=== PATIENT | female | born 1940 ===

== ENCOUNTER 2016-11-10 18:38 | Emergency (ER) | payer MEDICARE, MEDICAID ==
--- NOTE | 2016-11-10 19:30 | ED PDOC ---
HPI: CCC, URI, Sore Throat Time Seen by Provider: 11/10/16 18:54 Chief Complaint (Nursing): Chest Pain Chief Complaint (Provider): cough History Per: Patient History/Exam Limitations: no limitations Onset/Duration Of Symptoms: Days (1), Gradual Location Of Pain: Diffuse Myalgias, Headache Associated Symptoms: Fever, Chills, Cough, Myalgias, Nasal Congestion. denies: Sore Throat, Sputum, Sinus Drainage, Vomiting, Diarrhea Additional Complaint(s): At home she took her blood pressure and found it was high, although she has no h /o hypertension. Also reports some back pain. Past Medical History Reviewed: Historical Data, Nursing Documentation, Vital Signs Vital Signs: Last Vital Signs Temp 97.4 F L 11/10/16 22:45 Pulse 93 H 11/10/16 22:45 Resp 16 11/10/16 22:45 BP 101/62 11/10/16 22:45 Pulse Ox 96 11/14/16 14:12 - Medical History PMH: Cardia Arrhythmia Denies: Diabetes - Surgical History Surgical History: Cholecystectomy, Pacemaker - Family History Family History: States: Unknown Family Hx - Social History Current smoker - smoking cessation education provided: No - Home Medications Home Medications: Ambulatory Orders Medication Instructions Recorded Acetaminophen [Tylenol Extra 1,000 mg PO Q6 PRN #60 tablet 11/10/16 Strength] levoFLOXacin [Levaquin] 750 mg PO DAILY #5 tab 11/10/16 - Allergies Allergies/Adverse Reactions: Allergies Allergy/AdvReac Type Severity Reaction Status Date / Time azithromycin Allergy Verified 11/10/16 23:47 Review of Systems ROS Statement: Except As Marked, All Systems Reviewed And Found Negative (and as per HPI) Constitutional: Positive for: Fever, Chills ENT: Positive for: Nose Congestion. Negative for: Throat Pain, Throat Swelling Cardiovascular: Negative for: Edema, Light Headedness Respiratory: Positive for: Cough, Shortness of Breath. Negative for: Sputum Musculoskeletal: Positive for: Neck Pain, Back Pain Skin: Negative for: Rash, Lesions Physical Exam - Reviewed Nursing Documentation Reviewed: Yes Vital Signs Reviewed: Yes - Physical Exam Appears: Positive for: Non-toxic, No Acute Distress Head Exam: Positive for: ATRAUMATIC, NORMOCEPHALIC Skin: Positive for: Warm, Dry Eye Exam: Positive for: EOMI, PERRL ENT: Negative for: Pharyngeal Erythema, Tonsillar Exudate Neck: Positive for: Painless ROM, Supple Cardiovascular/Chest: Positive for: Chest Non Tender, Tachycardia. Negative for : Murmur Respiratory: Positive for: Rales (minimal base of RIGHT). Negative for: Accessory Muscle Use, Wheezing, Respiratory Distress Gastrointestinal/Abdominal: Positive for: Soft. Negative for: Tenderness, Mass Back: Positive for: Normal Inspection. Negative for: Muscle Spasm Extremity: Positive for: Normal ROM. Negative for: Pedal Edema Lymphatic: Negative for: Adenopathy Neurologic/Psych: Positive for: Alert. Negative for: Motor/Sensory Deficits - Laboratory Results Result Diagrams: 11/10/16 19:52 11/10/16 19:52 - ECG O2 Sat by Pulse Oximetry: 96 - Progress ED Course And Treament: Elevated ddimer, otherwise no clinically significant lab abnormalities. EXAM: CT Angiography Chest With Intravenous Contrast CLINICAL HISTORY: 76 years old, female; Pain; Other: Chest pain SOB tachycardia elevated ddimer; Prior surgery; Surgery date: 6+ months; Surgery type: Pacemaker mar 2015. Cholecystectomy TECHNIQUE: Axial computed tomographic angiography images of the chest with intravenous contrast using pulmonary embolism protocol. This CT exam was performed using one or more of the following dose reduction techniques: automated exposure control, adjustment of the mA and/or kV according to patient size, and/or use of iterative reconstruction technique. MIP reconstructed images were created and reviewed. Coronal and sagittal reformatted images were created and reviewed. CONTRAST: 98 mL of visipaque administered intravenously. COMPARISON: CR - CHEST TWO VIEWS (PA/LAT) 11/10/2016 7:43:55 PM FINDINGS: Limitations: Motion artifact - moderate. Pulmonary arteries: No definite pulmonary embolism. Aorta: Cgva-li-bgbncsys atherosclerotic disease. No aneurysm. Lungs: Mosaic pattern of lung parenchyma with scattered groundglass opacities. Minimal interlobular septal thickening. Small consolidation with air bronchograms within medial LEFT upper lobe. Few pulmonary nodules, up to 0.4 cm. Pleural space: No significant effusion. No pneumothorax. Heart: No cardiomegaly. No significant pericardial effusion. Mediastinum: Probable small hiatal hernia. Bones/joints: Degenerative changes of spine. No acute fracture. Soft tissues: Unremarkable. Lymph nodes: No pathologically enlarged lymph nodes. Liver: Probable fatty infiltration. Spleen: Multiple splenic calcifications. Tubes, lines and devices: LEFT pacemaker. IMPRESSION: 1. No definite CT evidence of pulmonary embolism. 2. Possible EVELYN pneumonia. Followup to resolution to exclude underlying pathology. 3. Mosaic pattern with scattered groundglass opacities, nonspecific. Clinical correlation is needed. 4. Pulmonary nodules. For low-risk patients, no follow-up is necessary. For high -risk patients (smoking history or other known risk factors) an optional CT at 12 months could be performed. 5. Incidental/non-acute findings are described above. Thank you for allowing us to participate in the care of your patient. Dictated and Authenticated by: Chi Ko MD 11/10/2016 10:09 PM Eastern Time ([place] & [place]) DW pt findings. Pt comfortable and eager to go home. Will give one dose of IV antibiotics and dc w oral course. Emphasized importance of PMD follow up. 12am Pt with small localized redness to LEFT antecubital area at site of IV azithromycin infusion. Some firmness and swelling to LEFT vein. Otherwise no diffuse rash or shortness of breath or itching. IV Azithro discontinued for possible reaction (although could also be related to IV)and IV benadryl given. Pt to be given course of Levaquin instead. Re-evaluation Time: 22:00 Condition: Improved (Pt is comfortable and eager to go home.) Disposition - Clinical Impression Clinical Impression: Pneumonia Counseled Patient/Family Regarding: Studies Performed, Diagnosis, Need For Followup, Rx Given - Disposition Referrals: Prabhu Jackson [Staff Provider] - 11/12/16 ([facility]) Disposition: Routine/Home Disposition Time: 22:00 Condition: IMPROVED Prescriptions: Acetaminophen [Tylenol Extra Strength] 1,000 mg PO Q6 PRN #60 tablet PRN Reason: Fever >100.4 F levoFLOXacin [Levaquin] 750 mg PO DAILY #5 tab Instructions: Community Acquired Pneumonia (ED) Print Language: DIVEHI
[2016-11-10 19:53] LABS: VENOUS BLOOD GAS BASE EXCESS 4.3 mmol/L (0.0-2.0); VENOUS BLOOD GAS PCO2 47 mmHg (40-60); VENOUS BLOOD GAS PO2 29 mm/Hg (30-55); VENOUS BLOOD PH 7.41 (7.32-7.43)
[2016-11-10 19:57] LABS: BASO # 0.1 K/uL (0.0-0.2); BASO % 1.1 % (0.0-2.0); EOS # 0.2 K/uL (0.0-0.7); EOS % 2.5 % (0.0-4.0); HEMOGLOBIN 13.7 g/dL (12.0-16.0); LYMPH # 2.2 K/uL (1.0-4.3); MEAN CELL VOLUME 88.3 fl (81.0-99.0); MEAN CORPUSCULAR HGB CONC 32.9 g/dL (33.0-37.0); MEAN PLATELET VOLUME 10.8 fl (7.2-11.7); MONO % 10.2 % (0.0-10.0); NEUT # 6.5 K/uL (1.8-7.0); NEUT % 64.2 % (50.0-75.0); NRBC % 0.1 % (0.0-0.0); RBC 4.72 Mil/uL (3.80-5.20); RED CELL DISTRIBUTION WIDTH 14.3 % (11.5-14.5); WHITE BLOOD COUNT 10.1 K/uL (4.8-10.8)
[2016-11-10 21:01] LABS: ALB/GLOB RATIO 1.4 (1.0-2.1); ALBUMIN 4.4 g/dL (3.5-5.0); ALT/SGPT 36 U/L (9-52); AST/SGOT 30 U/L (14-36); BLOOD UREA NITROGEN 9 mg/dl (7-17); CALCIUM 9.2 mg/dL (8.4-10.2); GFR AFRICAN-AMERICAN > 60; GFR NON-AFRICAN AMERICAN > 60; MAGNESIUM 1.6 MG/DL (1.6-2.3)
[2016-11-10 21:08] LABS: B-TYPE NATRIURETIC PEPTIDE 282 pg/ml (0-900)
[2016-11-10] MEDS ORDERED: Iodixanol 320 MG/ML 100 ML BOTTLE IV ONE (21:34)
[2016-11-10] MEDS ORDERED: Sodium Chloride 0.9% 50 ML IV ONE (21:35)
--- NOTE | 2016-11-10 22:09 | CT ---
EXAM: CT Angiography Chest With Intravenous Contrast CLINICAL HISTORY: 76 years old, female; Pain; Other: Chest pain SOB tachycardia elevated ddimer; Prior surgery; Surgery date: 6+ months; Surgery type: Pacemaker mar 2015. Cholecystectomy TECHNIQUE: Axial computed tomographic angiography images of the chest with intravenous contrast using pulmonary embolism protocol. This CT exam was performed using one or more of the following dose reduction techniques: automated exposure control, adjustment of the mA and/or kV according to patient size, and/or use of iterative reconstruction technique. MIP reconstructed images were created and reviewed. Coronal and sagittal reformatted images were created and reviewed. CONTRAST: 98 mL of visipaque administered intravenously. COMPARISON: CR - CHEST TWO VIEWS (PA/LAT) 11/10/2016 7:43:55 PM FINDINGS: Limitations: Motion artifact - moderate. Pulmonary arteries: No definite pulmonary embolism. Aorta: Hdic-nb-cetalcww atherosclerotic disease. No aneurysm. Lungs: Mosaic pattern of lung parenchyma with scattered groundglass opacities. Minimal interlobular septal thickening. Small consolidation with air bronchograms within medial LEFT upper lobe. Few pulmonary nodules, up to 0.4 cm. Pleural space: No significant effusion. No pneumothorax. Heart: No cardiomegaly. No significant pericardial effusion. Mediastinum: Probable small hiatal hernia. Bones/joints: Degenerative changes of spine. No acute fracture. Soft tissues: Unremarkable. Lymph nodes: No pathologically enlarged lymph nodes. Liver: Probable fatty infiltration. Spleen: Multiple splenic calcifications. Tubes, lines and devices: LEFT pacemaker. IMPRESSION: 1. No definite CT evidence of pulmonary embolism. 2. Possible EVELYN pneumonia. Followup to resolution to exclude underlying pathology. 3. Mosaic pattern with scattered groundglass opacities, nonspecific. Clinical correlation is needed. 4. Pulmonary nodules. For low-risk patients, no follow-up is necessary. For high-risk patients (smoking history or other known risk factors) an optional CT at 12 months could be performed. 5. Incidental/non-acute findings are described above.
[2016-11-10 22:45] VITALS: BP 101/62; PULSE 93; RESP 16; TEMP 97.4
[2016-11-10] MEDS ORDERED: Azithromycin 500 MG in Sodium Chloride 0.9% 250 ML IVPB STA (22:51)
[2016-11-10 22:54] VITALS: O2SAT 96
[2016-11-10] MEDS ORDERED: DiphenhydrAMINE 50 mg/ml Inj IVP STA (23:40)
--- NOTE | 2016-11-11 08:26 | RAD ---
HISTORY: sob COMPARISON: No prior. TECHNIQUE: Chest PA and lateral FINDINGS: LUNGS: No active pulmonary disease. PLEURA: No significant pleural effusion identified. No pneumothorax apparent. CARDIOVASCULAR: Normal. Pacemaker and leads in place. Atherosclerotic aorta. OSSEOUS STRUCTURES: No significant abnormalities. VISUALIZED UPPER ABDOMEN: Normal. OTHER FINDINGS: None. IMPRESSION: No active disease.
--- NOTE | 2016-11-11 11:29 | CARD ---
APPROVED REPORT EKG Measurement Heart [id number] <Conclusion> Sinus tachycardia Right bundle branch block Abnormal ECG
== END 2016-11-11 00:20 | disposition home or self-care (01) ==
LOC: H.ER 18:38
DX: J18.9 Pneumonia, unspecified organism (principal); I45.10 Unspecified right bundle-branch block; Z90.49 Acquired absence of other specified parts of digestive tract; Z95.0 Presence of cardiac pacemaker
CPT/HCPCS: 71020; 71275; 80053; 82803; 83735; 83880; 84100; 84484; 85025; 85378; 87040; 93005; 96374; 96375; 99284; J0456; J1200; J7050; Q9967

== ENCOUNTER 2017-03-31 03:39 | Emergency (ER) | payer MEDICARE, MEDICAID ==
[2017-03-31 03:56] VITALS: BMI 31.2
[2017-03-31] MEDS ORDERED: Albuterol-Ipratrop 3 mg / 0.5 (3 ml) UD INH STA ×2 (03:56→05:00)
[2017-03-31 04:00] VITALS: TEMP 97.8
--- NOTE | 2017-03-31 04:03 | ED PDOC ---
HPI: CCC, URI, Sore Throat Time Seen by Provider: 03/31/17 03:46 Chief Complaint (Nursing): Cough, Cold, Congestion Chief Complaint (Provider): Cough, Cold, Congestion History Per: Patient History/Exam Limitations: no limitations Have you had recent travel within the past 21 days to any of the following countries: [place], [place], [place] or [place]?: No Onset/Duration Of Symptoms: Days (x 3) Current Symptoms Are (Timing): Still Present Sick Contacts (Context): None Additional Complaint(s): 77 year old women presents to the ED with a cough productive of green sputum and associated shortness of breath, chest pain and a fever while at home. Patient has previously had bronchitis and was concerned she had it again. She denies any sick contact or recent travel. PMD: Dr. Reji Jackson MD Past Medical History Reviewed: Historical Data, Nursing Documentation, Vital Signs Vital Signs: Last Vital Signs Temp 97.8 F 03/31/17 03:57 Pulse 75 03/31/17 03:57 Resp 16 03/31/17 03:57 BP 150/68 03/31/17 03:57 Pulse Ox 95 03/31/17 05:32 - Medical History PMH: Cardia Arrhythmia, HTN Denies: Diabetes Other PMH: Bladder incontinence - Surgical History Surgical History: Cholecystectomy, Pacemaker - Family History Family History: States: Unknown Family Hx - Home Medications Home Medications: Ambulatory Orders Medication Instructions Recorded Acetaminophen [Tylenol Extra 1,000 mg PO Q6 PRN #60 tablet 11/10/16 Strength] levoFLOXacin [Levaquin] 750 mg PO DAILY #5 tab 11/10/16 Albuterol HFA [Ventolin HFA 90 2 puff IH [id number] #1 puff 03/31/17 mcg/actuation (8 g)] predniSONE [predniSONE Tab] 20 mg PO DAILY #3 tab 03/31/17 - Allergies Allergies/Adverse Reactions: Allergies Allergy/AdvReac Type Severity Reaction Status Date / Time azithromycin Allergy Verified 11/10/16 23:47 Review of Systems ROS Statement: Except As Marked, All Systems Reviewed And Found Negative Constitutional: Positive for: Fever (no longer present) Cardiovascular: Positive for: Chest Pain Respiratory: Positive for: Cough, Shortness of Breath, Sputum (green) Physical Exam - Reviewed Nursing Documentation Reviewed: Yes Vital Signs Reviewed: Yes - Physical Exam Appears: Positive for: Non-toxic, No Acute Distress Head Exam: Positive for: ATRAUMATIC, NORMAL INSPECTION, NORMOCEPHALIC Skin: Positive for: Normal Color, Warm, Dry Neck: Positive for: Normal, Painless ROM, Supple Respiratory: Positive for: Crackles (bilateral at the base of the lungs), Wheezing (expiratory) Neurologic/Psych: Positive for: Alert, Oriented. Negative for: Motor/Sensory Deficits - Laboratory Results Result Diagrams: 03/31/17 04:10 03/31/17 04:10 - ECG O2 Sat by Pulse Oximetry: 95 (RA) Pulse Ox Interpretation: Normal Medical Decision Making Medical Decision Making: Time: 03:57 Impression: pneumonia versus viral illness versus CHF versus ACS ' Initial Plan: --VBG shock panel --EKG --BNP --BMP --Troponin I --CBC with differentials --PTT --Prothrombin Time --Chest x-ray two views --Duoneb 3 ml INH --Peak Flow Pre/ Post treatment --Influenza A B 530AM Pt. reports resolution of symptoms. Lungs now clear on exam. Likely bronchospasm caused by viral illness. Will prescribe steroid/albuterol and have patient f/u w/ Dr. Jackson in 2 days. Return precautions discussed. Scribe Attestation: Documented by Gladys Ruggiero, acting as a scribe for Travis Boss MD Provider Scribe Attestation: All medical record entries made by the Scribe were at my direction and personally dictated by me. I have reviewed the chart and agree that the record accurately reflects my personal performance of the history, physical exam, medical decision making, and the department course for this patient. I have also personally directed, reviewed, and agree with the discharge instructions and disposition. Disposition - Clinical Impression Clinical Impression: Cough, Bronchospasm - Patient ED Disposition Is Patient to be Admitted: No - Disposition Referrals: Prabhu Jackson [Staff Provider] - Disposition: Routine/Home Disposition Time: 05:43 Condition: IMPROVED Prescriptions: Albuterol HFA [Ventolin HFA 90 mcg/actuation (8 g)] 2 puff IH [id number] #1 puff predniSONE [predniSONE Tab] 20 mg PO DAILY #3 tab Instructions: Bronchospasm (DC) Forms: [email or web address] (Upper Sorbian) Print Language: KIS[place]HILI
[2017-03-31] MEDS ORDERED: Albuterol-Ipratrop 3 mg / 0.5 (3 ml) UD ONE ×2 (04:09→05:15)
[2017-03-31 04:13] LABS: BASO # 0.1 K/uL (0.0-0.2); BASO % 0.9 % (0.0-2.0); EOS # 0.4 K/uL (0.0-0.7); EOS % 5.4 % (0.0-4.0); HEMATOCRIT 41.1 % (34.0-47.0); LYMPH # 3.2 K/uL (1.0-4.3); LYMPH % 46.5 % (20.0-40.0); MEAN CELL VOLUME 86.7 fl (81.0-99.0); MEAN CORPUSCULAR HGB CONC 33.4 g/dL (33.0-37.0); MEAN PLATELET VOLUME 9.7 fl (7.2-11.7); MONO # 0.7 K/uL (0.0-0.8); MONO % 10.6 % (0.0-10.0); NEUT # 2.5 K/uL (1.8-7.0); NEUT % 36.6 % (50.0-75.0); NRBC % 0.2 % (0.0-0.0); RED CELL DISTRIBUTION WIDTH 15.1 % (11.5-14.5); WHITE BLOOD COUNT 6.8 K/uL (4.8-10.8)
[2017-03-31 04:14] LABS: VENOUS BLOOD GAS BASE EXCESS 3.3 mmol/L (0.0-2.0); VENOUS BLOOD GAS MODE ROOM AIR; VENOUS BLOOD GAS PCO2 48 mmHg (40-60); VENOUS BLOOD PH 7.39 (7.32-7.43)
[2017-03-31 04:21] LABS: BLOOD UREA NITROGEN 17 mg/dl (7-17); CARBON DIOXIDE 26 mmol/L (22-30); CHLORIDE 104 mmol/L (98-107); GFR AFRICAN-AMERICAN > 60; GLUCOSE,RANDOM 104 mg/dL (65-105); POTASSIUM 4.2 MMOL/L (3.6-5.0); SODIUM 143 mmol/l (132-148)
[2017-03-31 04:40] LABS: PARTIAL THROMBOPLASTIN TIME 29.9 Seconds (25.6-37.1)
[2017-03-31 06:18] VITALS: BP 118/61; PULSE 98; RESP 18; O2SAT 97
--- NOTE | 2017-03-31 11:08 | RAD ---
HISTORY: cp, sob COMPARISON: 11/10/2016 TECHNIQUE: Chest PA and lateral FINDINGS: LUNGS: No active pulmonary disease. PLEURA: No significant pleural effusion identified. No pneumothorax apparent. CARDIOVASCULAR: Cardiomegaly. Atherosclerotic aorta. OSSEOUS STRUCTURES: No significant abnormalities. VISUALIZED UPPER ABDOMEN: Normal. OTHER FINDINGS: None. IMPRESSION: No active disease.
--- NOTE | 2017-03-31 11:51 | CARD ---
APPROVED REPORT EKG Measurement Heart [id number] <Conclusion> Atrial-sensed ventricular-paced rhythm with prolonged AV conduction Abnormal ECG
== END 2017-03-31 06:18 | disposition home or self-care (01) ==
LOC: H.ER 03:39
DX: J98.01 Acute bronchospasm (principal); I10 Essential (primary) hypertension; Z95.0 Presence of cardiac pacemaker

== ENCOUNTER 2017-10-17 17:54 | Observation (INO) | payer MEDICARE, MEDICAID ==
[2017-10-17 17:54] VITALS: BMI 31.2
[2017-10-17] MEDS ORDERED: Iohexol 240 (50 ml) PO ONE (18:39)
[2017-10-17 18:49] LABS: BASO # 0.1 K/uL (0.0-0.2); EOS # 0.3 K/uL (0.0-0.7); EOS % 3.1 % (0.0-4.0); HEMOGLOBIN 13.6 g/dL (12.0-16.0); LYMPH # 1.6 K/uL (1.0-4.3); LYMPH % 16.2 % (20.0-40.0); MEAN CELL VOLUME 88.4 fl (81.0-99.0); MEAN CORPUSCULAR HEMOGLOBIN 29.1 pg (27.0-31.0); MEAN PLATELET VOLUME 10.2 fl (7.2-11.7); MONO # 0.8 K/uL (0.0-0.8); NEUT # 7.1 K/uL (1.8-7.0); NEUT % 71.7 % (50.0-75.0); NRBC % 0.1 % (0.0-0.0); RBC 4.67 Mil/uL (3.80-5.20); RED CELL DISTRIBUTION WIDTH 14.3 % (11.5-14.5); WHITE BLOOD COUNT 9.9 K/uL (4.8-10.8)
[2017-10-17 18:51] LABS: CALCIUM 9.1 mg/dL (8.4-10.2); GFR AFRICAN-AMERICAN > 60; GFR NON-AFRICAN AMERICAN > 60; LIPASE 69 U/L (23-300)
--- NOTE | 2017-10-17 18:55 | ED PDOC ---
HPI: Abdomen Time Seen by Provider: 10/17/17 18:18 Chief Complaint (Nursing): Abdominal Pain Chief Complaint (Provider): abdominal pain History Per: Patient, Air Technician History/Exam Limitations: no limitations Onset/Duration Of Symptoms: Days (3 weeks) Current Symptoms Are (Timing): Still Present Location Of Pain/Discomfort: LLQ Quality Of Discomfort: Sharp Associated Symptoms: Nausea, Loss Of Appetite, Back Pain. denies: Vomiting, Diarrhea Exacerbating Factors: None Alleviating Factors: None Additional Complaint(s): 77yo female c/o left lower abd pain intermittent x several weeks but worse today , associated with vomiting today and tactile fever earlier. Denies urinary symptoms although notes incontinence. Denies syncope, back pain or BRBPR or hematuria. Past Medical History Reviewed: Historical Data, Nursing Documentation, Vital Signs Vital Signs: Last Vital Signs Temp 97.4 F L 10/18/17 12:16 Pulse 77 10/18/17 12:16 Resp 18 10/18/17 12:16 BP 132/75 10/18/17 12:16 Pulse Ox 97 10/18/17 12:16 - Medical History PMH: Cardia Arrhythmia, HTN Denies: Diabetes - Surgical History Surgical History: Cholecystectomy, Pacemaker - Family History Family History: States: Unknown Family Hx - Living Arrangements Living Arrangements: With Family (daughter) - Social History Current smoker - smoking cessation education provided: No - Home Medications Home Medications: Ambulatory Orders Medication Instructions Recorded Albuterol HFA [Ventolin HFA 90 2 puff IH [id number] #1 puff 03/31/17 mcg/actuation (8 g)] Ciprofloxacin [Cipro] 500 mg PO Q12 #12 tab 10/18/17 amLODIPine [Norvasc] 5 mg PO DAILY #30 tab 10/18/17 - Allergies Allergies/Adverse Reactions: Allergies Allergy/AdvReac Type Severity Reaction Status Date / Time azithromycin Allergy Verified 11/10/16 23:47 Review of Systems Constitutional: Negative for: Fever Cardiovascular: Negative for: Chest Pain Gastrointestinal: Positive for: Nausea, Abdominal Pain. Negative for: Diarrhea Genitourinary Female: Negative for: Dysuria Musculoskeletal: Negative for: Neck Pain Skin: Negative for: Rash, Lesions Neurological: Negative for: Weakness, Numbness Physical Exam - Reviewed Nursing Documentation Reviewed: Yes Vital Signs Reviewed: Yes - Physical Exam Appears: Positive for: Well, Non-toxic, No Acute Distress Head Exam: Positive for: ATRAUMATIC, NORMAL INSPECTION, NORMOCEPHALIC Skin: Positive for: Normal Color, Warm, DRY Eye Exam: Positive for: EOMI, Normal appearance, PERRL ENT: Positive for: Normal ENT Inspection Neck: Positive for: Normal, Painless ROM Cardiovascular/Chest: Positive for: Regular Rate, Rhythm Respiratory: Positive for: CNT, Normal Breath Sounds Gastrointestinal/Abdominal: Positive for: Soft, Tenderness (LLQ pain). Negative for: Guarding, Rebound Back: Positive for: Normal Inspection Extremity: Positive for: Normal ROM Neurologic/Psych: Positive for: Alert, Oriented. Negative for: Motor/Sensory Deficits - Laboratory Results Result Diagrams: 10/18/17 11:14 10/18/17 11:14 - ECG O2 Sat by Pulse Oximetry: 97 Medical Decision Making Medical Decision Making: workup for abd pain initiated, labs, CT abd pelv and pain medicine ordered labs reviewed, reveal mild dehydration UDip +small leuks CT obtained r/o diverticulitis vs other COMPARISON: There are no prior studies for comparison. FINDINGS: Artifacts: Motion artifact degrades image quality. Lower thorax: There is prominence of interstitial markings at the lung bases. There are patchy asymmetric groundglass opacities. Heart size is normal. There is streak artifact from a pacer lead. There is a small hiatal hernia. ABDOMEN: Liver: unremarkable Gallbladder and bile ducts: Gallbladder is surgically absent. There is mild intra-extra hepatic biliary ductal prominence. Pancreas: Pancreas is mildly atrophic. Spleen: There are multiple granulomas in the spleen. Adrenals: unremarkable Kidneys and ureters: unremarkable Stomach and bowel: Stomach is partially distended. Rotation is normal. There is contrast throughout the small bowel. There is mild small bowel wall thickening. Ileocecal region is unremarkable.Appendix and terminal ileum are unremarkable. There is moderately large amount of stool in the cecum. There are air-fluid levels in the colon. PELVIS: Appendix: See stomach and bowel Bladder: unremarkable Reproductive: Uterus is mildly prominent for patient's age. There are coarse uterine calcifications. There are no adnexal masses. ABDOMEN and PELVIS: Intraperitoneal space: There is no free air. There is no free fluid. Bones/joints: Bony structures are osteopenic. There are degenerative changes. Soft tissues: unremarkable Vasculature: Aorta is mildly tortuous. There are vascular calcifications. Lymph nodes: There shotty mesenteric nodes. IMPRESSION: Mild ductal dilatation status post cholecystectomy; prior granulomatous disease, no acute solid visceral abnormality; possible enteritis Additional nonemergent findings as described above. Thank you for allowing us to participate in the care of your patient. Dictated and Authenticated by: Shirin Rod MD 10/17/2017 10:13 PM Eastern Time ([place] & [place]) Re-eval 1115p remains in discomfort, while speaking to her via special effects designer Gail ([email or web address] she had acute episode became tearful. Unclear etiology. ?intestinal angina. UDip mild leuks, cipro and urine culture ordered Place Obs to hospitalist for PMD Renetta for poss GI eval in am Disposition - Clinical Impression Clinical Impression: Abdominal pain - Patient ED Disposition Is Patient to be Admitted: Yes - Disposition Disposition Time: 20:30 Condition: GOOD - Pt Status Changed To: Hospital Disposition Of: Observation - POA Present On Arrival: None
[2017-10-17 18:59] LABS: ALB/GLOB RATIO 1.3 (1.0-2.1); ALBUMIN 4.5 g/dL (3.5-5.0); ALT/SGPT 8 U/L (9-52); AST/SGOT 43 U/L (14-36); BLOOD UREA NITROGEN 18 mg/dl (7-17)
[2017-10-17] MEDS ORDERED: Sodium Chloride 0.9% 50 ML IV ONE (20:24)
[2017-10-17] MEDS ORDERED: Iohexol 300 100 ML IJ ONE (20:24)
--- NOTE | 2017-10-17 22:14 | CT ---
EXAM: CT Abdomen and Pelvis With Intravenous Contrast EXAM DATE/TIME: 10/17/2017 6:39 PM CLINICAL HISTORY: 77 years old, female; Pain; Abdominal pain; Localized; Left lower quadrant (llq); Prior surgery; Surgery date: 6+ months; Surgery type: Gb removed; Additional info: Llq pain x1 month TECHNIQUE: Axial computed tomography images of the abdomen and pelvis with intravenous contrast. All CT scans at this facility use at least one of these dose optimization techniques: automated exposure control; mA and/or kV adjustment per patient size (includes targeted exams where dose is matched to clinical indication); or iterative reconstruction. Coronal and sagittal reformatted images were created and reviewed. COMPARISON: There are no prior studies for comparison. FINDINGS: Artifacts: Motion artifact degrades image quality. Lower thorax: There is prominence of interstitial markings at the lung bases. There are patchy asymmetric groundglass opacities. Heart size is normal. There is streak artifact from a pacer lead. There is a small hiatal hernia. ABDOMEN: Liver: unremarkable Gallbladder and bile ducts: Gallbladder is surgically absent. There is mild intra-extra hepatic biliary ductal prominence. Pancreas: Pancreas is mildly atrophic. Spleen: There are multiple granulomas in the spleen. Adrenals: unremarkable Kidneys and ureters: unremarkable Stomach and bowel: Stomach is partially distended. Rotation is normal. There is contrast throughout the small bowel. There is mild small bowel wall thickening. Ileocecal region is unremarkable.Appendix and terminal ileum are unremarkable. There is moderately large amount of stool in the cecum. There are air-fluid levels in the colon. PELVIS: Appendix: See stomach and bowel Bladder: unremarkable Reproductive: Uterus is mildly prominent for patient's age. There are coarse uterine calcifications. There are no adnexal masses. ABDOMEN and PELVIS: Intraperitoneal space: There is no free air. There is no free fluid. Bones/joints: Bony structures are osteopenic. There are degenerative changes. Soft tissues: unremarkable Vasculature: Aorta is mildly tortuous. There are vascular calcifications. Lymph nodes: There shotty mesenteric nodes. IMPRESSION: Mild ductal dilatation status post cholecystectomy; prior granulomatous disease, no acute solid visceral abnormality; possible enteritis Additional nonemergent findings as described above.
[2017-10-17] MEDS ORDERED: Sodium Chloride 0.9% 500 ML IV STA (22:40)
[2017-10-17] MEDS ORDERED: Ciprofloxacin 400mg/200ml D5W 400 MG/200 ML BAG IVPB STA (23:14)
[2017-10-17] MEDS ORDERED: Ciprofloxacin 400mg/200ml D5W 400 MG/200 ML BAG IVPB ONE (23:19)
--- NOTE | 2017-10-17 23:36 | CP.PCM.HP ---
History of Present Illness - History of Present Illness History of Present Illness: PMD: Prabhu Jackson MD Chief complaint: Abdominal pain The Patient was seen and examined in the ED HPI: This is a 77 years old speaking female with hx of HTN. and cardiac arrhythm. She comes referring 4 weeks of LLQ abdominal pain which is intermittent but severe, occurring at rest or on exertion, radiating towards the left groin. No fever, chills, vomits, dysuria, diarrhea, nor hematuria. PMH: Cardiac Arrhythmia; HTN; Hearing impairment PSH: Cholecystectomy, Pacemaker SH: Never smoked: no alcohol; No illegal drug use; Live with family FH: State: No family hx Allergies: NKDA Medication: Reviewed Present on Admission - Present on Admission Any Indicators Present on Admission: No History of DVT/PE: No History of Uncontrolled Diabetes: No Urinary Catheter: No Decubitus Ulcer Present: No Review of Systems - Constitutional Constitutional: absent: Anorexia, Chills, Fever, Headache, Lethargy - EENT Eyes: Requires Corrective Lenses. absent: Blurred Vision, Diplopia, Floaters, Sees Flashes Ears: Decreased Hearing. absent: Tinnitus Nose/Mouth/Throat: absent: Epistaxis, Nasal Congestion, Sinus Pain, Sinus Pressure - Cardiovascular Cardiovascular: absent: Chest Pain, Dyspnea, Edema - Respiratory Respiratory: absent: Cough, Dyspnea, Wheezing, Stridor - Gastrointestinal Gastrointestinal: Abdominal Pain, Constipation, Nausea. absent: Diarrhea, Vomiting - Genitourinary Genitourinary: Urinary Incontinence. absent: Dysuria, Flank Pain - Musculoskeletal Musculoskeletal: absent: Abnormal Gait, Arthralgias, Joint Swelling, Myalgias - Integumentary Integumentary: absent: Pruritus, Rash, Skin Ulcer, Sores, Striae, Swelling - Neurological Neurological: absent: Confusion, Dizziness, Focal Weakness, Weakness - Psychiatric Psychiatric: absent: Anxiety, Depression, Panic Attacks - Endocrine Endocrine: absent: Palpitations, Polydipsia, Polyphagia, Polyuria - Hematologic/Lymphatic Hematologic: absent: Easy Bleeding, Easy Bruising Past Patient History - Infectious Disease Hx of Infectious Diseases: None - Past Medical History & Family History Past Medical History?: Yes - Past Social History Smoking Status: Never Smoked Chewing Tobacco Use: No Cigar Use: No Alcohol: None Drugs: Denies Home Situation {Lives}: With Family - CARDIAC Hx Cardia Arrhythmia: Yes Hx Hypertension: Yes Hx Pacemaker: Yes - PULMONARY Hx Respiratory Disorders: No - NEUROLOGICAL Hx Neurological Disorder: No - HEENT Hx Deafness: Yes (hearing aide) - RENAL Hx Chronic Kidney Disease: No - ENDOCRINE/METABOLIC Hx Endocrine Disorders: No - HEMATOLOGICAL/ONCOLOGICAL Hx Blood Disorders: No - INTEGUMENTARY Hx Dermatological Problems: No - MUSCULOSKELETAL/RHEUMATOLOGICAL Hx Musculoskeletal Disorders: No - GASTROINTESTINAL Hx Gastrointestinal Disorders: No - GENITOURINARY/GYNECOLOGICAL Hx Genitourinary Disorders: No - PSYCHIATRIC Hx Psychophysiologic Disorder: No Hx Substance Use: No - SURGICAL HISTORY Hx Cholecystectomy: Yes - ANESTHESIA Hx Anesthesia: Yes Hx Anesthesia Reactions: No Meds Allergies/Adverse Reactions: Allergies Allergy/AdvReac Type Severity Reaction Status Date / Time azithromycin Allergy Verified 11/10/16 23:47 Physical Exam - Constitutional Appears: No Acute Distress - Head Exam Head Exam: ATRAUMATIC, NORMAL INSPECTION, NORMOCEPHALIC - Eye Exam Eye Exam: EOMI, Normal appearance Pupil Exam: NORMAL ACCOMODATION, PERRL - ENT Exam ENT Exam: Mucous Membranes Moist, Normal Exam, Normal External Ear Exam - Neck Exam Neck exam: Positive for: Full Rom, Normal Inspection. Negative for: Lymphadenopathy, Tenderness - Respiratory Exam Respiratory Exam: Clear to Auscultation Bilateral. absent: Rales, Wheezes, NORMAL BREATHING PATTERN - Cardiovascular Exam Cardiovascular Exam: REGULAR RHYTHM, RRR, +S1, +S2. absent: Gallop - GI/Abdominal Exam Additional comments: Full, soft, +ve bowel sounds, no guarding, non tender at this examination - Rectal Exam Rectal Exam: Deferred - Extremities Exam Extremities exam: Positive for: full ROM, normal inspection. Negative for: calf tenderness, joint swelling, pedal edema - Back Exam Back exam: NORMAL INSPECTION. absent: CVA tenderness (L), CVA tenderness (R) - Neurological Exam Neurological exam: Alert, CN II-XII Intact, Oriented x3, Reflexes Normal - Psychiatric Exam Psychiatric exam: Normal Affect, Normal Mood - Skin Skin Exam: Dry, Intact, Normal Color Results - Vital Signs Recent Vital Signs: Last Vital Signs Temp 98.6 F 10/17/17 18:05 Pulse 85 10/17/17 18:05 Resp 16 10/17/17 18:05 BP 160/63 H 10/17/17 18:05 Pulse Ox 97 10/17/17 23:22 - Labs Result Diagrams: 10/17/17 18:30 10/17/17 18:30 Labs: Laboratory Results - last 24 hr 10/17/17 10/17/17 18:30 18:30 WBC 9.9 RBC 4.67 Hgb 13.6 Hct 41.2 MCV 88.4 MCH 29.1 MCHC 33.0 RDW 14.3 Plt Count 262 MPV 10.2 Neut % (Auto) 71.7 Lymph % (Auto) 16.2 L [place] % (Auto) 8.0 Eos % (Auto) 3.1 Baso % (Auto) 1.0 Neut # (Auto) 7.1 H Lymph # (Auto) 1.6 [place] # (Auto) 0.8 Eos # (Auto) 0.3 Baso # (Auto) 0.1 Sodium 141 Potassium 4.8 Chloride 105 Carbon Dioxide 22 Anion Gap 19 BUN 18 H Creatinine 0.5 L Est GFR ( Amer) > 60 Est GFR (Non-Af Amer) > 60 Random Glucose 110 H Calcium 9.1 Total Bilirubin 1.4 H AST 43 H ALT 8 L D Alkaline Phosphatase 105 Total Protein 7.9 Albumin 4.5 Globulin 3.4 Albumin/Globulin Ratio 1.3 Lipase 69 - Imaging and Cardiology CT scan - abdomen Status: Report reviewed by me Additional comment: EXAM: CT Abdomen and Pelvis With Intravenous Contrast EXAM DATE/TIME: 10/17/2017 6:39 PM FINDINGS: Artifacts: Motion artifact degrades image quality. Lower thorax: There is prominence of interstitial markings at the lung bases. There are patchy asymmetric groundglass opacities. Heart size is normal. There is streak artifact from a pacer lead. There is a small hiatal hernia. ABDOMEN: Liver: unremarkable Gallbladder and bile ducts: Gallbladder is surgically absent. There is mild intra-extra hepatic biliary ductal prominence. Pancreas: Pancreas is mildly atrophic. Spleen: There are multiple granulomas in the spleen. Adrenals: unremarkable Kidneys and ureters: unremarkable Stomach and bowel: Stomach is partially distended. Rotation is normal. There is contrast throughout the small bowel. There is mild small bowel wall thickening. Ileocecal region is unremarkable.Appendix and terminal ileum are unremarkable. There is moderately large amount of stool in the cecum. There are air-fluid levels in the colon. PELVIS: Appendix: See stomach and bowel Bladder: unremarkable Reproductive: Uterus is mildly prominent for patient's age. There are coarse uterine calcifications. There are no adnexal masses. ABDOMEN and PELVIS: Intraperitoneal space: There is no free air. There is no free fluid. Bones/joints: Bony structures are osteopenic. There are degenerative changes. Soft tissues: unremarkable Vasculature: Aorta is mildly tortuous. There are vascular calcifications. Lymph nodes: There shotty mesenteric nodes. IMPRESSION: Mild ductal dilatation status post cholecystectomy; prior granulomatous disease, no acute solid visceral abnormality; possible enteritis Additional nonemergent findings as described above. Assessment & Plan - Assessment and Plan (Free Text) Assessment: #. LLQ Abdominal pain #. UTI with funguria #. HTN Plan: 77 years old speaking female with hx of HTN. and cardiac arrhythm. She comes referring 4 weeks of LLQ abdominal pain which is intermittent but severe, occurring at rest or on exertion, radiating towards the left groin. No fever, chills, vomits, dysuria, diarrhea, nor hematuria. #. LLQ Abdominal pain etiology unclear -CT Abdomen/Pelvis: IMPRESSION: Mild ductal dilatation status post cholecystectomy; prior granulomatous disease, no acute solid visceral abnormality; - US of LLQ - Pain management #. UTI with funguria - follow Urine culture - Cipro - Fluconazole #. HTN - Amlodipine #. DVT Prophylaxis with Lovenox #. Code Status: Full - Date & Time Date: 10/17/17 Time: 23:36
[2017-10-17 23:38] LABS: SQUAMOUS EPITHIAL 1 /hpf (0-5); URINE BACTERIA OCC (<OCC); URINE BILIRUBIN NEGATIVE (NEGATIVE); URINE BLOOD MODERATE (NEGATIVE); URINE CLARITY CLOUDY (Clear); URINE COLOR YELLOW (YELLOW); URINE GLUCOSE (UA) NEG (Normal); URINE LEUKOCYTE ESTERASE LARGE Leu/uL (Negative); URINE PROTEIN NEGATIVE (NEGATIVE); URINE UROBILINOGEN 0.2-1.0 mg/dL (0.2-1.0)
[2017-10-18 03:20] VITALS: RESP 18
[2017-10-18] MEDS ORDERED: Pneumococcal 23-Valent Vaccine IM ONE (06:14)
[2017-10-18] MEDS ORDERED: Ciprofloxacin 400mg/200ml D5W 400 MG/200 ML BAG IVPB SCH (09:00)
[2017-10-18] MEDS ORDERED: Enoxaparin 40 mg Syringe SC SCH (09:00)
--- NOTE | 2017-10-18 09:28 | US ---
HISTORY: LLQ abdominal pain COMPARISON: None. TECHNIQUE: Sonographic evaluation of the right upper quadrant of the abdomen. FINDINGS: LIVER: Measures 14.1 cm in length. Slightly increased echogenicity of the liver parenchyma is seen diffusely. No mass. No intrahepatic bile duct dilatation. Normal directional blood flow portal vein. GALLBLADDER: Cholecystectomy apparently. Clinically correlate. COMMON BILE DUCT: Measures 8.1 mm. No stones. No dilatation. PANCREAS: Obscured by overlying bowel gas RIGHT KIDNEY: Measures 10.4 cm in length. Normal echogenicity. No calculus, mass, or hydronephrosis. AORTA: No aneurysmal dilatation. IVC: Unremarkable. OTHER FINDINGS: None . IMPRESSION: 1. Mild hepatic steatosis. No intrahepatic biliary dilatation grossly evident. 2. Dilated CBD 8.1 mm without choledocholithiasis. Dilatation potentially a function of prior cholecystectomy. Clinically correlate. 3. Prior cholecystectomy. 4. Pancreas not identified due to obscuring bowel gas.
[2017-10-18 11:33] LABS: HEMOGLOBIN 12.4 g/dL (12.0-16.0); MEAN CELL VOLUME 87.1 fl (81.0-99.0); MEAN CORPUSCULAR HEMOGLOBIN 28.4 pg (27.0-31.0); MEAN CORPUSCULAR HGB CONC 32.7 g/dL (33.0-37.0); RBC 4.35 Mil/uL (3.80-5.20); RED CELL DISTRIBUTION WIDTH 14.2 % (11.5-14.5); WHITE BLOOD COUNT 6.2 K/uL (4.8-10.8)
[2017-10-18 11:42] LABS: ALB/GLOB RATIO 1.3 (1.0-2.1); ALBUMIN 3.9 g/dL (3.5-5.0); ALT/SGPT 18 U/L (9-52); AST/SGOT 24 U/L (14-36); BLOOD UREA NITROGEN 11 mg/dl (7-17); CALCIUM 8.8 mg/dL (8.4-10.2); GFR AFRICAN-AMERICAN > 60; GFR NON-AFRICAN AMERICAN > 60
--- NOTE | 2017-10-18 11:59 | CP.PCM.DIS ---
Provider - Provider Date of Admission: 10/17/17 23:18 Attending physician: Talat Hammonds Time Spent in preparation of Discharge (in minutes): 30 Diagnosis - Discharge Diagnosis (1) Enteritis Status: Acute (2) Constipation Status: Acute Hospital Course - Lab Results Lab Results: Most Recent Lab Values WBC 6.2 K/uL (4.8-10.8) 10/18/17 11:14 RBC 4.35 Mil/uL (3.80-5.20) 10/18/17 11:14 Hgb 12.4 g/dL (12.0-16.0) 10/18/17 11:14 Hct 37.9 % (34.0-47.0) 10/18/17 11:14 MCV 87.1 fl (81.0-99.0) 10/18/17 11:14 MCH 28.4 pg (27.0-31.0) 10/18/17 11:14 MCHC 32.7 g/dL (33.0-37.0) L 10/18/17 11:14 RDW 14.2 % (11.5-14.5) 10/18/17 11:14 Plt Count 229 K/uL (130-400) 10/18/17 11:14 MPV 10.2 fl (7.2-11.7) 10/17/17 18:30 Neut % (Auto) 71.7 % (50.0-75.0) 10/17/17 18:30 Lymph % (Auto) 16.2 % (20.0-40.0) L 10/17/17 18:30 [place] % (Auto) 8.0 % (0.0-10.0) 10/17/17 18:30 Eos % (Auto) 3.1 % (0.0-4.0) 10/17/17 18:30 Baso % (Auto) 1.0 % (0.0-2.0) 10/17/17 18:30 Neut # (Auto) 7.1 K/uL (1.8-7.0) H 10/17/17 18:30 Lymph # (Auto) 1.6 K/uL (1.0-4.3) 10/17/17 18:30 [place] # (Auto) 0.8 K/uL (0.0-0.8) 10/17/17 18:30 Eos # (Auto) 0.3 K/uL (0.0-0.7) 10/17/17 18:30 Baso # (Auto) 0.1 K/uL (0.0-0.2) 10/17/17 18:30 Sodium 139 mmol/l (132-148) 10/18/17 11:14 Potassium 3.4 MMOL/L (3.6-5.0) L 10/18/17 11:14 Chloride 102 mmol/L (98-107) 10/18/17 11:14 Carbon Dioxide 23 mmol/L (22-30) 10/18/17 11:14 Anion Gap 17 (10-20) 10/18/17 11:14 BUN 11 mg/dl (7-17) 10/18/17 11:14 Creatinine 0.4 mg/dl (0.7-1.2) L 10/18/17 11:14 Est GFR ( Amer) > 60 10/18/17 11:14 Est GFR (Non-Af Amer) > 60 10/18/17 11:14 Random Glucose 160 mg/dL (65-105) H 10/18/17 11:14 Calcium 8.8 mg/dL (8.4-10.2) 10/18/17 11:14 Total Bilirubin 0.9 mg/dl (0.2-1.3) 10/18/17 11:14 AST 24 U/L (14-36) 10/18/17 11:14 ALT 18 U/L (9-52) 10/18/17 11:14 Alkaline Phosphatase 99 U/L (38-126) 10/18/17 11:14 Total Protein 6.7 G/DL (6.3-8.2) 10/18/17 11:14 Albumin 3.9 g/dL (3.5-5.0) 10/18/17 11:14 Globulin 2.9 gm/dL (2.2-3.9) 10/18/17 11:14 Albumin/Globulin Ratio 1.3 (1.0-2.1) 10/18/17 11:14 Lipase 69 U/L (23-300) 10/17/17 18:30 Urine Color Yellow (YELLOW) 10/17/17 23:23 Urine Clarity Cloudy (Clear) 10/17/17 23:23 Urine pH 7.0 (5.0-8.0) 10/17/17 23:23 Ur Specific [place] 1.024 (1.003-1.030) 10/17/17 23:23 Urine Protein Negative mg/dL (NEGATIVE) 10/17/17 23:23 Urine Glucose (UA) Neg mg/dL (Normal) 10/17/17 23:23 Urine Ketones Negative mg/dL (NEGATIVE) 10/17/17 23:23 Urine Blood Moderate (NEGATIVE) 10/17/17 23:23 Urine Nitrate Negative (NEGATIVE) 10/17/17 23:23 Urine Bilirubin Negative (NEGATIVE) 10/17/17 23:23 Urine Urobilinogen 0.2-1.0 mg/dL (0.2-1.0) 10/17/17 23:23 Ur Leukocyte Esterase Large [place]/uL (Negative) 10/17/17 23:23 Urine RBC (Auto) 24 /hpf (0-3) H 10/17/17 23:23 Urine Microscopic WBC 22 /hpf (0-5) H 10/17/17 23:23 Ur Squamous Epith Cells 1 /hpf (0-5) 10/17/17 23:23 Urine Bacteria Occ (<OCC) H 10/17/17 23:23 Urine Yeast (Budding) Few /hpf (NEGATIVE) H 10/17/17 23:23 - Hospital Course Hospital Course: 77 years old speaking female with hx of HTN. and cardiac arrhythm. She comes referring 4 weeks of LLQ abdominal pain which is intermittent but severe, occurring at rest or on exertion, radiating towards the left groin. No fever, chills, vomits, dysuria, diarrhea, nor hematuria. LLQ Abdominal pain likely secondary to ENTERITIS AND CONSTIPATION -CTAP: Mild ductal dilatation status post cholecystectomy; MODERATE STOOL and Enteritis. Pt pain improved after receiving CT contrast as well as fleet enema and multiple bowel movements. ABD US showed CBD of 8.1 mm, TBILI 1.4 yesterday. TBILI and ALK PHOS normalized today. MRCP was considered, however has pacemaker. Patient stable for discharge with follow up PCP after resolution of pain, if pain returns or worsens patient also may return to ED. UTI with funguria - follow Urine culture - Cipro course for UTI - Fluconazole given HTN - Amlodipine DVT Prophylaxis with Lovenox Discharge Exam - Head Exam Head Exam: ATRAUMATIC, NORMAL INSPECTION, NORMOCEPHALIC - Eye Exam Eye Exam: EOMI, Normal appearance, PERRL Pupil Exam: NORMAL ACCOMODATION - ENT Exam ENT Exam: Mucous Membranes Moist, Normal Oropharynx - Respiratory Exam Respiratory Exam: Clear to PA & Lateral, NORMAL BREATHING PATTERN - Cardiovascular Exam Cardiovascular Exam: RRR, +S1, +S2 - GI/Abdominal Exam GI & Abdominal Exam: Normal Bowel Sounds, Soft. absent: Mass, Organomegaly, Tenderness - Extremities Exam Extremities exam: normal capillary refill, pedal pulses present - Back Exam Back exam: absent: CVA tenderness (L), CVA tenderness (R) - Neurological Exam Neurological exam: Alert, Oriented x3 - Psychiatric Exam Psychiatric exam: Normal Affect, Normal Mood - Skin Skin Exam: Dry, Normal Color, Warm Discharge Plan - Discharge Medications Prescriptions: amLODIPine [Norvasc] 5 mg PO DAILY #30 tab Ciprofloxacin [Cipro] 500 mg PO Q12 #12 tab - Follow Up Plan Condition: GOOD Disposition: HOME/ ROUTINE Additional Instructions: FOLLOW UP WITH PRIMARY DOCTOR IN ONE WEEK.
[2017-10-18 12:16] VITALS: BP 132/75; PULSE 77; TEMP 97.4; O2SAT 97
== END 2017-10-18 13:36 | disposition home or self-care (01) ==
LOC: H.ER 17:54 → H.ERHOLD 23:18 → H.TEL 10-18 04:41
PROVIDERS: ADMIT Internal Medicine; ATTEND Internal Medicine
DX: K52.9 Noninfective gastroenteritis and colitis, unspecified (principal); K59.00 Constipation, unspecified; Z95.0 Presence of cardiac pacemaker; E86.0 Dehydration; Z23 Encounter for immunization; Z88.1 Allergy status to other antibiotic agents; I10 Essential (primary) hypertension; N39.0 Urinary tract infection, site not specified
CPT/HCPCS: 36415; 74177; 76705; 80053; 81003; 83690; 85025; 85027; 87086; 90732; 96365; 96372; 96375; 99285; G0009; G0378; J0744; J1650; J1885; J7030; Q9966; Q9967

== ENCOUNTER 2018-01-08 11:16 | Emergency (ER) | payer MEDICARE, MEDICAID ==
[2018-01-08 11:17] VITALS: BMI 31.2
[2018-01-08 11:25] VITALS: BP 133/70; PULSE 93; RESP 18; TEMP 98.6; O2SAT 97
--- NOTE | 2018-01-08 12:59 | CT ---
Date of service: 01/08/2018 PROCEDURE: CT HEAD WITHOUT CONTRAST. HISTORY: Head injury COMPARISON: None available. TECHNIQUE: Axial computed tomography images were obtained through the head/brain without intravenous contrast. Radiation dose: Total exam DLP = 764.76 mGy-cm. This CT exam was performed using one or more of the following dose reduction techniques: Automated exposure control, adjustment of the mA and/or kV according to patient size, and/or use of iterative reconstruction technique. FINDINGS: HEMORRHAGE: No intracranial hemorrhage. BRAIN: There are mild chronic microangiopathic changes. There is no mass, mass effect or abnormal extra-axial fluid collection. There is no territorial infarction. The midline sagittal structures are normal. VENTRICLES: There is mild age-related global parenchymal volume loss and proportionate enlargement of the ventricles and cortical sulci. CALVARIUM: There is no calvarial fracture or extracranial soft tissue swelling. PARANASAL SINUSES: Predominantly clear. MASTOID AIR CELLS: The right mastoid air cells are underdeveloped. The left mastoid air cells are clear. OTHER FINDINGS: None. IMPRESSION: No acute intracranial abnormality. Mild chronic microangiopathic changes and mild age-related global parenchymal volume loss.
--- NOTE | 2018-01-08 13:58 | CT ---
Date of service: 01/08/2018 PROCEDURE: CT Cervical Spine without contrast HISTORY: neck pain COMPARISON: None available. TECHNIQUE: Axial computed tomography images were obtained of the cervical spine without the use of intravenous contrast. Coronal and sagittal reformatted images were created and reviewed. Radiation dose: Total exam DLP = 1130.53 mGy-cm. This CT exam was performed using one or more of the following dose reduction techniques: Automated exposure control, adjustment of the mA and/or kV according to patient size, and/or use of iterative reconstruction technique. FINDINGS: VERTEBRAE: There is normal alignment of the cervical vertebral bodies. There is mild reversal of normal cervical lordosis. Vertebral height is normal. There is diffuse bone demineralization. There is no acute fracture or traumatic anterior listhesis. The craniocervical junction is normal. The atlantoaxial joint normal. DISCS/SPINAL CANAL/NEURAL FORAMINA: Please note evaluation of the discs and spinal canal is limited on noncontrast CT examination there is multilevel degenerative disc disease due to combination of disc osteophyte complexes, uncovertebral joint hypertrophy and multilevel facet arthropathy, worse at C3-4 with a broad-based central disc protrusion and mild spinal canal stenosis and severe neural foraminal narrowing. PARASPINAL SOFT TISSUES: The paraspinous soft tissues are normal. OTHER FINDINGS: None. IMPRESSION: Multilevel degenerative disc disease due to combination of disc osteophyte complexes, uncovertebral joint hypertrophy and multilevel facet arthropathy, worse at C3-4 with a broad-based central disc protrusion, mild spinal canal stenosis and severe neural foraminal narrowing. Evaluation of the discs and spinal cord is limited on noncontrast CT examination, an MRI without intravenous contrast on a nonemergent basis is would be helpful for definitive evaluation if clinically indicated. Mild reversal of normal cervical kyphosis may be positional or related to muscle spasm.
--- NOTE | 2018-01-08 15:06 | ED PDOC ---
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 Patient states her knees gave away and fell, she hit the left side of her head, neck and shoulder and has had pain since then. Patient uses cane with ambulation. She did not take any medication for symptoms. She denies any syncope , LOC, chest pain or shortness of breath. No further medical complaints. PMD: Prabhu Jackson Past Medical History Reviewed: Historical Data, Nursing Documentation, Vital Signs Vital Signs: Last Vital Signs Temp 98.6 F 01/08/18 11:20 Pulse 93 H 01/08/18 11:20 Resp 18 01/08/18 11:20 BP 133/70 01/08/18 11:20 Pulse Ox 97 01/08/18 11:20 - Medical History PMH: Arthritis, Cardia Arrhythmia, HTN Denies: Diabetes, HIV, Chronic Kidney Disease - Surgical History Surgical History: Cholecystectomy, Pacemaker - Family History Family History: States: Unknown Family Hx - Social History Current smoker - smoking cessation education provided: No Alcohol: None Drugs: Denies - Home Medications Home Medications: Ambulatory Orders Medication Instructions Recorded Albuterol HFA [Ventolin HFA 90 2 puff IH [id number] #1 puff 03/31/17 mcg/actuation (8 g)] Ciprofloxacin [Cipro] 500 mg PO Q12 #12 tab 10/18/17 amLODIPine [Norvasc] 5 mg PO DAILY #30 tab 10/18/17 Promethazine HCl/Codeine 5 ml PO Q6 PRN #100 ml 01/08/18 [Promethazine-Codeine Syrup] - Allergies Allergies/Adverse Reactions: Allergies Allergy/AdvReac Type Severity Reaction Status Date / Time azithromycin Allergy ITCHING Verified 01/08/18 11:25 Review of Systems ROS Statement: Except As Marked, All Systems Reviewed And Found Negative Cardiovascular: Negative for: Chest Pain Respiratory: Negative for: Shortness of Breath Musculoskeletal: Positive for: Neck Pain (left ), Shoulder Pain (left) Neurological: Positive for: Headache. Negative for: Other (LOC or syncope) Physical Exam - Reviewed Nursing Documentation Reviewed: Yes Vital Signs Reviewed: Yes - Physical Exam Appears: Positive for: No Acute Distress Head Exam: Positive for: ATRAUMATIC (no hematoma, edema or ecchymosis), NORMOCEPHALIC Skin: Positive for: Normal Color, Warm, Dry Eye Exam: Positive for: Normal appearance, EOMI, PERRL Neck: Positive for: Normal, Painless ROM, Supple Cardiovascular/Chest: Positive for: Regular Rate, Rhythm. Negative for: Murmur Respiratory: Positive for: Normal Breath Sounds. Negative for: Respiratory Distress Gastrointestinal/Abdominal: Positive for: Normal Exam, Soft. Negative for: Tenderness, Guarding, Rebound, Other (ecchymosis) Back: Positive for: Normal Inspection. Negative for: L CVA Tenderness, R CVA Tenderness, Vertebral Tenderness Extremity: Positive for: Tenderness (on palpation of left shoulder with mild swelling, no erythema. ). Negative for: Normal ROM (Painful ROM to left shoulder), Deformity, Swelling Neurologic/Psych: Positive for: Alert, Oriented (x3). Negative for: Motor/ Sensory Deficits - ECG O2 Sat by Pulse Oximetry: 97 (RA) Pulse Ox Interpretation: Normal Medical Decision Making Medical Decision Making: Time: 11:14 Initial Impression: Mechanical fall, head and shoulder injury Initial Plan: --Cervical spine w/o contrast [CT] --Head w/o contrast [CT] --Toradol 15 mg IM --Shoulder left [RAD] --Reevaluation 12:[address] FINDINGS: HEMORRHAGE: No intracranial hemorrhage. BRAIN: There are mild chronic microangiopathic changes. There is no mass, mass effect or abnormal extra-axial fluid collection. There is no territorial infarction. The midline sagittal structures are normal. VENTRICLES: There is mild age-related global parenchymal volume loss and proportionate enlargement of the ventricles and cortical sulci. CALVARIUM: There is no calvarial fracture or extracranial soft tissue swelling. PARANASAL SINUSES: Predominantly clear. MASTOID AIR CELLS: The right mastoid air cells are underdeveloped. The left mastoid air cells are clear. OTHER FINDINGS: None. IMPRESSION: No acute intracranial abnormality. Mild chronic microangiopathic changes and mild age-related global parenchymal volume loss. 13:[address] FINDINGS: VERTEBRAE: There is normal alignment of the cervical vertebral bodies. There is mild reversal of normal cervical lordosis. Vertebral height is normal. There is diffuse bone demineralization. There is no acute fracture or traumatic anterior listhesis. The craniocervical junction is normal. The atlantoaxial joint normal. DISCS/SPINAL CANAL/NEURAL FORAMINA: Please note evaluation of the discs and spinal canal is limited on noncontrast CT examination there is multilevel degenerative disc disease due to combination of disc osteophyte complexes, uncovertebral joint hypertrophy and multilevel facet arthropathy, worse at C3-4 with a broad-based central disc protrusion and mild spinal canal stenosis and severe neural foraminal narrowing. PARASPINAL SOFT TISSUES: The paraspinous soft tissues are normal. OTHER FINDINGS: None. IMPRESSION: Multilevel degenerative disc disease due to combination of disc osteophyte complexes, uncovertebral joint hypertrophy and multilevel facet arthropathy, worse at C3-4 with a broad-based central disc protrusion, mild spinal canal stenosis and severe neural foraminal narrowing. Evaluation of the discs and spinal cord is limited on noncontrast CT examination, an MRI without intravenous contrast on a nonemergent basis is would be helpful for definitive evaluation if clinically indicated. Mild reversal of normal cervical kyphosis may be positional or related to muscle spasm. Scribe Attestation: Documented by Haider Saba, acting as a scribe for Morteza Toribio MD Provider Scribe Attestation: All medical record entries made by the Scribe were at my direction and personally dictated by me. I have reviewed the chart and agree that the record accurately reflects my personal performance of the history, physical exam, medical decision making, and the department course for this patient. I have also personally directed, reviewed, and agree with the discharge instructions and disposition. Disposition - Clinical Impression Clinical Impression: Shoulder injury, Head injury - Patient ED Disposition Is Patient to be Admitted: No Doctor Will See Patient In The: Office Counseled Patient/Family Regarding: Studies Performed, Diagnosis, Need For Followup - Disposition Referrals: Prabhu Jackson [Staff Provider] - Disposition: Routine/Home Disposition Time: 14:00 Condition: GOOD Additional Instructions: BOZENA LEIJA, thank you for letting us take care of you today. Your provider was Morteza Toribio MD and you were treated for SHOULDER PAIN. The emergency medical care you received today was directed at your acute symptoms. If you were prescribed any medication, please fill it and take as directed. It may take several days for your symptoms to resolve. Return to the Emergency Department if your symptoms worsen, do not improve, or if you have any other problems. Please contact your doctor or call one of the physicians/clinics you have been referred to that are listed on the Patient Visit Information form that is included in your discharge packet. Bring any paperwork you were given at discharge with you along with any medications you are taking to your follow up visit. Our treatment cannot replace ongoing medical care by a primary care provider outside of the emergency department. Thank you for allowing the [facility] team to be part of your care today. If you had an X-Ray or CT scan: A Radiologist will review the ED reading if any change in treatment is needed we will contact you. If you had a blood, urine, or wound culture: It will take several days for the results, if any change in treatment is needed we will contact you. If you had an STI test: It will take 48 hours for the results. Please call after 1 week if you have not heard back. Prescriptions: Promethazine HCl/Codeine [Promethazine-Codeine Syrup] 5 ml PO Q6 PRN #100 ml PRN Reason: Cough Instructions: Shoulder Sprain, Closed Head Injury (DC) Print Language: FAROESE
--- NOTE | 2018-01-08 17:00 | RAD ---
Date of service: 01/08/2018 PROCEDURE: Radiographs of the Left Shoulder HISTORY: Shoulder pain injury COMPARISON: No prior. FINDINGS: BONES: Bone alignment is normal. There is diffuse bone demineralization. There is no acute displaced fracture or bone destruction. JOINTS: Normal. Glenohumeral and acromioclavicular joints preserved. No osteoarthritis. SOFT TISSUES: Normal. OTHER FINDINGS: None. IMPRESSION: No acute fracture or dislocation.
== END 2018-01-08 15:15 | disposition home or self-care (01) ==
LOC: H.ER 11:16
DX: S09.90XA Unspecified injury of head, initial encounter (principal); S49.92XA Unspecified injury of left shoulder and upper arm, initial encounter; W19.XXXA Unspecified fall, initial encounter; Y92.89 Other specified places as the place of occurrence of the external cause; Z95.0 Presence of cardiac pacemaker
CPT/HCPCS: 70450; 72125; 73030; 96372; 99284; J1885

== ENCOUNTER 2018-04-14 00:06 | Emergency (ER) | payer MEDICARE, MEDICAID ==
[2018-04-14 00:07] VITALS: BMI 31.2
--- NOTE | 2018-04-14 01:47 | ED PDOC ---
HPI: Abdomen Time Seen by Provider: 04/14/18 00:21 Chief Complaint (Nursing): GI Problem Chief Complaint (Provider): GI Problem History Per: Patient History/Exam Limitations: no limitations Onset/Duration Of Symptoms: Days (x14) Location Of Pain/Discomfort: Diffuse Associated Symptoms: Diarrhea, Constipation Additional Complaint(s): 78 y/o female with history of hypertension, arthritis, obesity and chronic constipation presents to ER for evaluation of abdominal pain and constipation for 2 weeks. Patient reports she had no bowel movement for the past 2 weeks, too some laxatives with no relief. She states she required some enemas in the past. PMD: Prabhu Jackson Past Medical History Reviewed: Historical Data, Nursing Documentation, Vital Signs Vital Signs: Last Vital Signs Temp 98.8 F 04/14/18 00:12 Pulse 86 04/14/18 00:12 Resp 16 04/14/18 00:12 BP 107/78 04/14/18 00:12 Pulse Ox 95 04/14/18 00:12 - Medical History PMH: Arthritis, Cardia Arrhythmia, HTN Denies: Diabetes, HIV, Chronic Kidney Disease - Surgical History Surgical History: Cholecystectomy, Pacemaker - Family History Family History: States: Unknown Family Hx - Social History Current smoker - smoking cessation education provided: No Alcohol: None Drugs: Denies - Home Medications Home Medications: Ambulatory Orders Medication Instructions Recorded RX: Albuterol HFA [Ventolin HFA 90 2 puff IH [id number] #1 puff 03/31/17 mcg/actuation (8 g)] Ciprofloxacin [Cipro] 500 mg PO Q12 #12 tab 10/18/17 RX: amLODIPine [Norvasc] 5 mg PO DAILY #30 tab 10/18/17 Promethazine HCl/Codeine 5 ml PO Q6 PRN #100 ml 01/08/18 [Promethazine-Codeine Syrup] - Allergies Allergies/Adverse Reactions: Allergies Allergy/AdvReac Type Severity Reaction Status Date / Time azithromycin Allergy ITCHING Verified 01/08/18 11:25 Review of Systems ROS Statement: Except As Marked, All Systems Reviewed And Found Negative Gastrointestinal: Positive for: Abdominal Pain, Constipation Physical Exam - Reviewed Nursing Documentation Reviewed: Yes Vital Signs Reviewed: Yes - Physical Exam Appears: Positive for: Non-toxic, Uncomfortable Skin: Positive for: Normal Color, Warm, Dry Neck: Positive for: Normal, Painless ROM, Supple Cardiovascular/Chest: Positive for: Regular Rate, Rhythm. Negative for: Murmur Respiratory: Positive for: Normal Breath Sounds. Negative for: Respiratory Distress Gastrointestinal/Abdominal: Positive for: Tenderness (diffused) Back: Positive for: Normal Inspection. Negative for: L CVA Tenderness, R CVA Tenderness Extremity: Positive for: Normal ROM. Negative for: Pedal Edema, Deformity Neurologic/Psych: Positive for: Alert, Oriented (x3) - Laboratory Results Result Diagrams: 04/14/18 01:50 04/14/18 02:36 - ECG O2 Sat by Pulse Oximetry: 95 (RA) Pulse Ox Interpretation: Normal Medical Decision Making Medical Decision Making: Time:44 Initial Impression: 78 y/o female with abdominal pain and constipation Initial Plan: --Labs --Abdomen x-ray --Enemas [address] Toribio, pending CT and reevaluation. Scribe Attestation: Documented by Wendy Maradiaga, acting as a scribe for Mirza Lucero MD. Provider Scribe Attestation: All medical record entries made by the Scribe were at my direction and per sonally dictated by me. I have reviewed the chart and agree that the record accurately reflects my personal performance of the history, physical exam, medical decision making, and the department course for this patient. I have also personally directed, reviewed, and agree with the discharge instructions and disposition. Disposition - Clinical Impression Clinical Impression: Abdominal pain - Patient ED Disposition Is Patient to be Admitted: Transfer of Care (to Dr. Toribio) - Disposition Disposition: Transfer of Care Disposition Time: 07:00 Forms: [employer] (Guatemalan)
[2018-04-14 02:15] LABS: BASO # 0.1 K/uL (0.0-0.2); BASO % 0.9 % (0.0-2.0); EOS # 0.3 K/uL (0.0-0.7); EOS % 2.9 % (0.0-4.0); HEMOGLOBIN 13.4 g/dL (12.0-16.0); LYMPH # 2.7 K/uL (1.0-4.3); LYMPH % 26.2 % (20.0-40.0); MEAN CELL VOLUME 85.5 fl (81.0-99.0); MEAN CORPUSCULAR HEMOGLOBIN 28.4 pg (27.0-31.0); MEAN CORPUSCULAR HGB CONC 33.2 g/dL (33.0-37.0); MEAN PLATELET VOLUME 10.7 fl (7.2-11.7); MONO # 0.6 K/uL (0.0-0.8); MONO % 5.8 % (0.0-10.0); NEUT # 6.7 K/uL (1.8-7.0); NEUT % 64.2 % (50.0-75.0); NRBC % 0.1 % (0.0-0.0); RBC 4.7 Mil/uL (3.80-5.20); RED CELL DISTRIBUTION WIDTH 14.8 % (11.5-14.5); WHITE BLOOD COUNT 10.4 K/uL (4.8-10.8)
[2018-04-14 03:32] LABS: BLOOD UREA NITROGEN 13 mg/dl (7-17); GFR NON-AFRICAN AMERICAN > 60
[2018-04-14 03:33] LABS: ALB/GLOB RATIO 1.2 (1.0-2.1); ALBUMIN 4.1 g/dL (3.5-5.0); ALT/SGPT 33 U/L (9-52); AST/SGOT 42 U/L (14-36); CALCIUM 9.5 mg/dL (8.4-10.2); LIPASE 49 U/L (23-300)
[2018-04-14] MEDS ORDERED: Iohexol 240 (50 ml) PO ONE (03:58)
--- NOTE | 2018-04-14 07:18 | ED PDOC ---
- Laboratory Results Result Diagrams: 04/14/18 01:50 04/14/18 02:36 - ECG O2 Sat by Pulse Oximetry: 95 (RA) Pulse Ox Interpretation: Normal Medical Decision Making Medical Decision Making: Time: 07:00 --Patient transferred to this provider pending CT and reevaluation. 09:06 Abd & Pelvis CT FINDINGS: LOWER THORAX: The visualized lungs are clear. LIVER: Normal in size with homogeneous enhancement. No gross lesion or ductal dilatation. GALLBLADDER AND BILE DUCTS: Surgically absent. PANCREAS: Mild diffuse atrophy. Homogeneous enhancement. No gross lesion or ductal dilatation. SPLEEN: Small in size. Redemonstration of multiple calcified granulomas. ADRENALS: No discrete nodule. KIDNEYS AND URETERS: Normal in size with homogeneous enhancement. No hydronephrosis. No solid mass. VASCULATURE: No aortic aneurysm. There are atherosclerotic aortic calcifications present. BOWEL: The small bowel loops are normal in caliber. There is large amount of stool in the distal descending colon and fecal impaction in the rectum. There is mild circumferential mural thickening in the rectal wall with mild surrounding inflammatory changes. No bowel wall thickening or obstruction. APPENDIX: Normal appendix. PERITONEUM: No free fluid. No free air. LYMPH NODES: No enlarged lymph nodes. BLADDER: Decompressed. REPRODUCTIVE: The uterus is normal in size. BONES: No acute fracture. Advanced multilevel degenerative disc disease. OTHER FINDINGS: Bilateral small fat containing inguinal hernias. IMPRESSION: Findings are most compatible with stercoral colitis. No bowel obstruction. 11:11 --Patient has since had multiple bowel movements in the ER. Reports improvement of symptoms. Scribe Attestation: Documented by Gladys Ruggiero acting as a scribe for Morteza Toribio MD Provider Scribe Attestation: All medical record entries made by the Scribe were at my direction and personally dictated by me. I have reviewed the chart and agree that the record accurately reflects my personal performance of the history, physical exam, medical decision making, and the department course for this patient. I have also personally directed, reviewed, and agree with the discharge instructions and disposition. Disposition Doctor Will See Patient In The: Office Counseled Patient/Family Regarding: Studies Performed, Diagnosis, Need For Followup - Clinical Impression Clinical Impression: Abdominal pain, Constipation - POA Present On Arrival: None - Disposition Disposition: Routine/Home Disposition Time: 10:30 Condition: GOOD Additional Instructions: BOZENA LEIJA, thank you for letting us take care of you today. Your provider was Morteza Toribio MD and you were treated for ABD PAIN. The emergency medical care you received today was directed at your acute symptoms. If you were prescribed any medication, please fill it and take as directed. It may take several days for your symptoms to resolve. Return to the Emergency Department if your symptoms worsen, do not improve, or if you have any other problems. Please contact your doctor or call one of the physicians/clinics you have been referred to that are listed on the Patient Visit Information form that is included in your discharge packet. Bring any paperwork you were given at discharge with you along with any medications you are taking to your follow up visit. Our treatment cannot replace ongoing medical care by a primary care provider outside of the emergency department. Thank you for allowing the [facility] team to be part of your care today. If you had an X-Ray or CT scan: A Radiologist will review the ED reading if any change in treatment is needed we will contact you. If you had a blood, urine, or wound culture: It will take several days for the results, if any change in treatment is needed we will contact you. If you had an STI test: It will take 48 hours for the results. Please call after 1 week if you have not heard back. Prescriptions: Polyethylene Glycol 3350 [Miralax] 17 gm PO DAILY #5 unit Instructions: Constipation in Adults Print Language: SINHALA
[2018-04-14] MEDS ORDERED: Sodium Chloride 0.9% 50 ML IV ONE (07:20)
[2018-04-14] MEDS ORDERED: Iohexol 300 100 ML IJ ONE (07:20)
--- NOTE | 2018-04-14 09:08 | CT ---
Date of service: 04/14/2018 PROCEDURE: CT Abdomen and Pelvis with contrast HISTORY: Abdominal pain COMPARISON: 10/09/2017. TECHNIQUE: CT scan of the abdomen and pelvis was performed after administration of intravenous contrast. Oral contrast was administered. Coronal and sagittal reformatted images were obtained. Contrast dose: 95 cc Omnipaque 300 Radiation dose: Total exam DLP = 818.76 mGy-cm. This CT exam was performed using one or more of the following dose reduction techniques: Automated exposure control, adjustment of the mA and/or kV according to patient size, and/or use of iterative reconstruction technique. FINDINGS: LOWER THORAX: The visualized lungs are clear. LIVER: Normal in size with homogeneous enhancement. No gross lesion or ductal dilatation. GALLBLADDER AND BILE DUCTS: Surgically absent. PANCREAS: Mild diffuse atrophy. Homogeneous enhancement. No gross lesion or ductal dilatation. SPLEEN: Small in size. Redemonstration of multiple calcified granulomas. ADRENALS: No discrete nodule. KIDNEYS AND URETERS: Normal in size with homogeneous enhancement. No hydronephrosis. No solid mass. VASCULATURE: No aortic aneurysm. There are atherosclerotic aortic calcifications present. BOWEL: The small bowel loops are normal in caliber. There is large amount of stool in the distal descending colon and fecal impaction in the rectum. There is mild circumferential mural thickening in the rectal wall with mild surrounding inflammatory changes. No bowel wall thickening or obstruction. APPENDIX: Normal appendix. PERITONEUM: No free fluid. No free air. LYMPH NODES: No enlarged lymph nodes. BLADDER: Decompressed. REPRODUCTIVE: The uterus is normal in size. BONES: No acute fracture. Advanced multilevel degenerative disc disease. OTHER FINDINGS: Bilateral small fat containing inguinal hernias. IMPRESSION: Findings are most compatible with stercoral colitis. No bowel obstruction.
--- NOTE | 2018-04-14 10:07 | RAD ---
Date of service: 04/14/2018 HISTORY: Abdominal pain COMPARISON: 03/31/2017. FINDINGS: The lungs are well inflated and clear. There is unfolding of the aorta. There are aortic atherosclerotic calcifications. There is stable position of left-sided permanent pacing device. BOWEL: The bowel gas pattern is nonspecific and nonobstructive. No differential air-fluid levels. No evidence of bowel dilatation. BONES: Normal. OTHER FINDINGS: None. IMPRESSION: Nonobstructive nonspecific bowel gas pattern. Clear lungs.
[2018-04-14 13:22] VITALS: BP 102/60; PULSE 90; RESP 19; TEMP 98.6; O2SAT 97
== END 2018-04-14 13:20 | disposition home or self-care (01) ==
LOC: H.ER 00:06
DX: K59.00 Constipation, unspecified (principal); R10.9 Unspecified abdominal pain; I10 Essential (primary) hypertension; Z95.0 Presence of cardiac pacemaker
CPT/HCPCS: 74022; 74177; 80053; 83605; 83690; 85025; 99284; Q9966; Q9967

== ENCOUNTER 2018-07-03 15:28 | Emergency (ER) | payer MEDICARE, MEDICAID ==
[2018-07-03 15:28] VITALS: BMI 31.2
[2018-07-03] MEDS ORDERED: Sodium Chloride 0.9% 500 ML IV STA (15:58)
[2018-07-03] MEDS ORDERED: Albuterol-Ipratrop 3 mg / 0.5 (3 ml) UD INH STA (16:00)
--- NOTE | 2018-07-03 16:03 | ED PDOC ---
HPI: General Adult Time Seen by Provider: 07/03/18 15:43 Chief Complaint (Nursing): Lower Extremity Problem/Injury Chief Complaint (Provider): Bodyaches History Per: Patient History/Exam Limitations: no limitations Onset/Duration Of Symptoms: Persistent (2 weeks) Current Symptoms Are (Timing): Still Present Additional Complaint(s): 78yo female, with history of arthritis, hypertension, high cholesterol, brought to ER by EMS for evaluation due to bilateral shoulders, hips and knees pain. Patient states the pain has been present for 2 weeks and states she did not have such pain prior to that. No falls or trauma. Patient reports some shortness of breath and headache as well. Otherwise, no fever, chills, chest pain, nausea, vomiting, diarrhea or dizziness. No numbness, tingling or paresthesia to extremities. No additional complaints. PMD: Dr. Jackson Past Medical History Reviewed: Historical Data, Nursing Documentation, Vital Signs Vital Signs: Last Vital Signs Temp 98.4 F 07/03/18 15:33 Pulse 108 H 07/03/18 15:33 Resp 16 07/03/18 15:33 BP 143/61 07/03/18 15:33 Pulse Ox 92 L 07/03/18 15:33 - Medical History PMH: Arthritis, Cardia Arrhythmia, HTN Denies: Diabetes, HIV, Chronic Kidney Disease - Surgical History Surgical History: Cholecystectomy, Pacemaker - Family History Family History: States: No Known Family Hx, Unknown Family Hx - Living Arrangements Living Arrangements: With Family - Social History Alcohol: None Drugs: Denies - Home Medications Home Medications: Ambulatory Orders Medication Instructions Recorded amLODIPine [Norvasc] 5 mg PO DAILY #30 tab 10/18/17 Ibuprofen [Motrin] 600 mg PO TID 7 Days tab 07/03/18 - Allergies Allergies/Adverse Reactions: Allergies Allergy/AdvReac Type Severity Reaction Status Date / Time azithromycin Allergy ITCHING Verified 07/03/18 15:33 Review of Systems ROS Statement: Except As Marked, All Systems Reviewed And Found Negative Constitutional: Negative for: Fever, Chills Cardiovascular: Negative for: Chest Pain Respiratory: Positive for: Shortness of Breath Musculoskeletal: Positive for: Shoulder Pain, Other (knee and hip pain) Neurological: Positive for: Headache. Negative for: Numbness, Dizziness Physical Exam - Reviewed Nursing Documentation Reviewed: Yes Vital Signs Reviewed: Yes - Physical Exam Appears: Positive for: Non-toxic, Uncomfortable Head Exam: Positive for: ATRAUMATIC, NORMAL INSPECTION, NORMOCEPHALIC Skin: Positive for: Normal Color Eye Exam: Positive for: Normal appearance, EOMI, PERRL ENT: Positive for: Normal ENT Inspection. Negative for: Pharyngeal Erythema Neck: Positive for: Normal, Painless ROM, Supple Cardiovascular/Chest: Positive for: Regular Rate, Rhythm, Chest Non Tender Respiratory: Positive for: Other (coarse breath sounds bilaterally). Negative for: Accessory Muscle Use Pulses-Dorsalis Pedis (L): 2+ Pulses-Dorsalis Pedis (R): 2+ Gastrointestinal/Abdominal: Positive for: Soft. Negative for: Tenderness, Mass, Guarding, Rebound Back: Negative for: L CVA Tenderness, R CVA Tenderness Extremity: Positive for: Normal ROM (FROM of bilateral shoulders; + active ROM bilateral hips and knees but painful), Tenderness (tenderness to bilateral hips and knees). Negative for: Pedal Edema, Deformity Neurological/Psych: Positive for: Awake, Alert, Oriented (x 3), passenger screener II-XII. Negative for: Motor/Sensory Deficits (+ normal distal sensations), Facial Droop - Laboratory Results Result Diagrams: 07/03/18 16:20 07/03/18 16:20 Lab Results: no acute - ECG ECG: Positive for: Interpreted By Me, Viewed By Me ECG Rhythm: Positive for: Normal QRS, Normal ST Segment, Sinus Rhythm - Radiology X-Ray: Interpreted by Me, Viewed By Me X-Ray Interpretation: No Acute Disease - Progress ED Course And Treament: 1939: Stable. AAOx3. Granddaughter at bedside. States pt. pains are ongoing since December and has limited mobility. No new symptoms today. No dyspnea, weakness. Vitals stable. Medical Decision Making Medical Decision Making: Impression: 78yo female with shoulder, hip and knee pain; shortness of breath Plan: -- Labs -- EKG -- Chest XR -- XR bilateral hips -- XR hips -- Duoneb 3ml INH x 3 -- SOlumedrol 125mg IV -- IV Fluids Scribe Attestation: Documented by Vesta Rutledge, acting as a scribe for Crow Yang MD. Provider Scribe Attestation: All medical record entries made by the Scribe were at my direction and personally dictated by me. I have reviewed the chart and agree that the record accurately reflects my personal performance of the history, physical exam, medical decision making, and the department course for this patient. I have also personally directed, reviewed, and agree with the discharge instructions and disposition. Disposition - Clinical Impression Clinical Impression: Chronic pain - Patient ED Disposition Is Patient to be Admitted: No Counseled Patient/Family Regarding: Studies Performed, Diagnosis, Need For Followup, Rx Given - Disposition Referrals: [facility] [Outside] - 07/04/18 Disposition Time: 19:41 Condition: STABLE Additional Instructions: Return if not better in 3 days. Prescriptions: Ibuprofen [Motrin] 600 mg PO TID 7 Days tab Instructions: Chronic Pain (DC)
[2018-07-03] MEDS: Albuterol-Ipratrop 3 mg / 0.5 (3 ml) UD IH STA ×2 (16:21→16:22)
[2018-07-03] MEDS ORDERED: Albuterol-Ipratrop 3 mg / 0.5 (3 ml) UD ONE (16:21)
[2018-07-03 16:42] LABS: ALB/GLOB RATIO 1.1 (1.0-2.1); ALBUMIN 4.1 g/dL (3.5-5.0); BLOOD UREA NITROGEN 16 mg/dl (7-17); CALCIUM 9.4 mg/dL (8.4-10.2); GFR NON-AFRICAN AMERICAN > 60
[2018-07-03 16:44] LABS: BASO # 0.1 K/uL (0.0-0.2); BASO % 1.1 % (0.0-2.0); EOS # 0.1 K/uL (0.0-0.7); EOS % 1.5 % (0.0-4.0); HEMOGLOBIN 12.6 g/dL (12.0-16.0); LYMPH # 2.2 K/uL (1.0-4.3); LYMPH % 31.2 % (20.0-40.0); MEAN CELL VOLUME 85.1 fl (81.0-99.0); MEAN CORPUSCULAR HEMOGLOBIN 27.9 pg (27.0-31.0); MEAN CORPUSCULAR HGB CONC 32.8 g/dL (33.0-37.0); MEAN PLATELET VOLUME 9.4 fl (7.2-11.7); MONO # 0.6 K/uL (0.0-0.8); MONO % 9.1 % (0.0-10.0); NEUT % 57.1 % (50.0-75.0); NRBC % 0.1 % (0.0-0.0); RBC 4.53 Mil/uL (3.80-5.20); RED CELL DISTRIBUTION WIDTH 15.2 % (11.5-14.5); WHITE BLOOD COUNT 7.1 K/uL (4.8-10.8)
[2018-07-03 16:52] LABS: ALT/SGPT 19 U/L (9-52); AST/SGOT 29 U/L (14-36)
[2018-07-03 16:53] LABS: B-TYPE NATRIURETIC PEPTIDE 145 pg/ml (0-900)
[2018-07-03 18:43] LABS: INR 1.1; PROTHROMBIN TIME 12.3 Seconds (9.8-13.1)
[2018-07-03 18:45] LABS: PARTIAL THROMBOPLASTIN TIME 32.4 Seconds (25.6-37.1)
--- NOTE | 2018-07-04 09:12 | CARD ---
APPROVED REPORT Date of service: 07/03/2018 EKG Measurement Heart [id number] <Conclusion> Normal sinus rhythm Normal ECG
--- NOTE | 2018-07-04 13:14 | RAD ---
Date of service: 07/03/2018 HISTORY: Dyspnea. COMPARISON: 04/14/2018 FINDINGS: LUNGS: No active pulmonary disease. PLEURA: No significant pleural effusion identified, no pneumothorax apparent. CARDIOVASCULAR: No radiographic findings to suggest acute or significant cardiovascular disease. Position/ configuration of pacemaker device: Satisfactory. Atherosclerotic calcifications identified primarily aortic arch. OSSEOUS STRUCTURES: No significant abnormalities. VISUALIZED UPPER ABDOMEN: Normal. OTHER FINDINGS: None. IMPRESSION: No active disease. No significant interval change compared to the prior examination(s). Concordant results with the preliminary interpretation rendered by the emergency department physician procedure.
[2018-07-04 14:11] VITALS: BP 141/75; PULSE 93; RESP 20; TEMP 98.3; O2SAT 95
--- NOTE | 2018-07-04 14:58 | RAD ---
Date of service: 07/03/2018 PROCEDURE: Bilateral Knee Radiographs. HISTORY: Bilateral leg Pain. No history of recent/ related trauma provided COMPARISON: None. FINDINGS: BONES: Right Knee: No acute fracture. Proliferative hypertrophic changes emanating from the femoral condyle and tibial plateau regions. Left Knee: No acute fracture. Proliferative hypertrophic changes emanating from the femoral condyle and tibial plateau regions. JOINTS: Right Knee: Medial compartment narrowing. Lateral chondrocalcinosis. Left knee: Medial compartment narrowing is symmetrical. Lateral chondrocalcinosis. SOFT TISSUES: Right Knee: Normal. Left Knee: Normal. JOINT EFFUSION: Right Knee: None. Left Knee: None. OTHER FINDINGS: None. IMPRESSION: No acute findings related to/ accounting for the clinical presentation. Additional benign and/or incidental findings described above. Concordant results with the preliminary interpretation rendered by the emergency department physician procedure.
--- NOTE | 2018-07-04 15:25 | RAD ---
Date of service: 07/03/2018 PROCEDURE: Pelvis bilateral hips HISTORY: Bilateral lower extremity Pain. No history of recent/ related trauma provided. COMPARISON: None TECHNIQUE: Standard protocol for this study/examination. FINDINGS: There are no osseous abnormalities to suggest fracture. The pelvic ring is intact. Preserved femoral-acetabular relationship. Negative study for protrusio, subluxation or dislocation. Degenerative changes: Mild and symmetrical. IMPRESSION: No acute findings related to/ accounting for the clinical presentation. Additional benign and/or incidental findings described above. Concordant results with the preliminary interpretation rendered by the emergency department physician procedure.
== END 2018-07-04 14:10 | disposition home or self-care (01) ==
LOC: H.ER 15:28
DX: G89.29 Other chronic pain (principal); E78.00 Pure hypercholesterolemia, unspecified; I10 Essential (primary) hypertension; M19.90 Unspecified osteoarthritis, unspecified site; Z95.0 Presence of cardiac pacemaker
CPT/HCPCS: 71045; 73522; 73560; 80053; 83880; 84484; 85025; 85610; 85730; 93005; 94640; 96374; 96375; 99285; J1885; J2930; J7040

== ENCOUNTER 2018-08-16 14:10 | Inpatient (IN) | payer MEDICARE, MEDICAID ==
[2018-08-16 14:14] VITALS: BMI 32.9
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
[2018-08-16 16:22] LABS: BASO # 0.1 K/uL (0.0-0.2); BASO % 0.9 % (0.0-2.0); EOS # 0.2 K/uL (0.0-0.7); EOS % 2.7 % (0.0-4.0); HEMOGLOBIN 12.7 g/dL (12.0-16.0); LYMPH # 2.1 K/uL (1.0-4.3); LYMPH % 32.2 % (20.0-40.0); MEAN CELL VOLUME 85.8 fl (81.0-99.0); MEAN CORPUSCULAR HEMOGLOBIN 27.9 pg (27.0-31.0); MEAN CORPUSCULAR HGB CONC 32.5 g/dL (33.0-37.0); MEAN PLATELET VOLUME 9.2 fl (7.2-11.7); MONO # 0.4 K/uL (0.0-0.8); MONO % 5.7 % (0.0-10.0); NEUT # 3.7 K/uL (1.8-7.0); NEUT % 58.5 % (50.0-75.0); NRBC % 0.1 % (0.0-0.0); RBC 4.57 Mil/uL (3.80-5.20); RED CELL DISTRIBUTION WIDTH 15.3 % (11.5-14.5); WHITE BLOOD COUNT 6.4 K/uL (4.8-10.8)
--- NOTE | 2018-08-16 16:55 | RAD ---
Date of service: 08/16/2018 HISTORY: Shortness of breath,, cough COMPARISON: Comparison chest dated 07/03/2018. TECHNIQUE: Chest PA and lateral views FINDINGS: LUNGS: Poor inspiration with low lung volumes common crowded bronchovascular markings and minor bibasilar atelectasis. In addition, the interstitial markings are slightly increased likely due to low lung volumes. Right paratracheal density likely due to ectatic great vessels PLEURA: Questionable tiny bilateral effusions. No pneumothorax apparent. CARDIOVASCULAR: Aorta ectatic and uncoiled with mild aortic atherosclerotic calcification present. Heart heart size upper limits of normal/borderline enlarged.. In situ bipolar pacemaker/defibrillator. The OSSEOUS STRUCTURES: No significant abnormalities. VISUALIZED UPPER ABDOMEN: Normal. OTHER FINDINGS: None. IMPRESSION: Poor inspiration with low lung volumes common crowded bronchovascular markings and minor bibasilar atelectasis. In addition, the interstitial markings are slightly increased likely due to low lung volumes. Questionable tiny bilateral effusions.
[2018-08-16 17:14] LABS: ALB/GLOB RATIO 1.1 (1.0-2.1); ALBUMIN 3.9 g/dL (3.5-5.0); ALT/SGPT 21 U/L (9-52); AST/SGOT 34 U/L (14-36); BLOOD UREA NITROGEN 15 mg/dl (7-17); CALCIUM 8.8 mg/dL (8.4-10.2); GFR NON-AFRICAN AMERICAN > 60
[2018-08-16 17:39] LABS: B-TYPE NATRIURETIC PEPTIDE 131 pg/ml (0-900)
[2018-08-16 19:18] LABS: SQUAMOUS EPITHIAL 3 /hpf (0-5); URINE BACTERIA FEW (<OCC); URINE BILIRUBIN NEGATIVE (NEGATIVE); URINE BLOOD SMALL (NEGATIVE); URINE CLARITY SLIGHTY-CLOUDY (Clear); URINE COLOR YELLOW (YELLOW); URINE GLUCOSE (UA) NEG (NEGATIVE); URINE LEUKOCYTE ESTERASE SMALL Leu/uL (Negative); URINE PROTEIN NEGATIVE (NEGATIVE)
[2018-08-16 20:07] LABS: BARBITURATES, UR NEGATIVE (NEGATIVE)
[2018-08-16 20:08] LABS: BENZODIAZEPINES, UR POSITIVE (NEGATIVE); OPIATES, UR NEGATIVE (NEGATIVE); PHENCYCLIDINE, UR NEGATIVE (NEGATIVE)
[2018-08-16 20:49] VITALS: O2SAT 95
[2018-08-16] MEDS ORDERED: Alum-Mag Hydrox-Simethicone Susp (30 mL) PO PRN (23:11)
[2018-08-16] MEDS ORDERED: Magnesium Hydroxide Susp 30 ml UD PO PRN (23:11)
[2018-08-16] MEDS ORDERED: Bismuth Subsalicylate 262 mg/15 ml Sus (240 ml) PO PRN (23:11)
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
[2018-08-17 08:52] LABS: IRON 63 ug/dL (37-170)
[2018-08-17 09:05] LABS: % IRON SATURATION 26 % (20-55); TOTAL IRON BINDING CAPACITY 244 ug/dL (250-450)
--- NOTE | 2018-08-17 10:07 | CP.PCM.CON ---
History of Present Illness - History of Present Illness History of Present Illness: 78 yo female with history of HTN, Arrhythmia and Arthritis admitted in [facility] because of depression Review of Systems - Review of Systems All systems: reviewed and no additional remarkable complaints except (aside from those mentioned above, 12 points system review were negative by me) Past Patient History - Infectious Disease Hx of Infectious Diseases: None - Tetanus Immunizations Tetanus Immunization: Unknown - Past Medical History & Family History Past Medical History?: Yes - Past Social History Smoking Status: Never Smoked Chewing Tobacco Use: No Cigar Use: No Alcohol: None Drugs: Denies - CARDIAC Hx Cardiac Disorders: Yes Hx Cardia Arrhythmia: Yes Hx Hypertension: Yes Hx Pacemaker: Yes - PULMONARY Hx Tuberculosis: No - NEUROLOGICAL Hx Seizures: No - HEENT Hx HEENT Problems: Yes Hx Deafness: Yes - RENAL Hx Chronic Kidney Disease: No - ENDOCRINE/METABOLIC Hx Endocrine Disorders: No - HEMATOLOGICAL/ONCOLOGICAL Hx Human Immunodeficiency Virus (HIV): No - INTEGUMENTARY Hx Dermatological Problems: No - MUSCULOSKELETAL/RHEUMATOLOGICAL Hx Falls: No - GASTROINTESTINAL Hx Gastrointestinal Disorders: No - GENITOURINARY/GYNECOLOGICAL Hx Sexually Transmitted Disorders: No - PSYCHIATRIC Hx Depression: Yes Hx Substance Use: No - SURGICAL HISTORY Hx Cholecystectomy: Yes - ANESTHESIA Hx Anesthesia: Yes Hx Anesthesia Reactions: No Hx Malignant Hyperthermia: No Meds Allergies/Adverse Reactions: Allergies Allergy/AdvReac Type Severity Reaction Status Date / Time azithromycin Allergy ITCHING Verified 08/16/18 14:18 - Medications Medications: Current Medications Acetaminophen (Tylenol 325mg Tab) 650 mg PO Q4 PRN PRN Reason: Pain, moderate (4-7) Last Admin: 08/17/18 04:04 Dose: 650 mg Al Hydrox/Mg Hydrox/Simethicone (Maalox Plus 30 Ml) 30 ml PO Q4 PRN PRN Reason: Dyspepsia Amlodipine Besylate (Norvasc) 5 mg PO DAILY CHICO Last Admin: 08/17/18 09:32 Dose: 5 mg Bismuth Subsalicylate (Pepto-Bismol) 524 mg PO Q4 PRN PRN Reason: Diarrhea Lorazepam (Ativan) 0.5 mg PO HS PRN PRN Reason: Insomnia Stop: 08/30/18 23:12 Lorazepam (Ativan) 0.5 mg PO Q6 PRN PRN Reason: Anixety/Agitation Stop: 08/30/18 23:12 Magnesium Hydroxide (Milk Of Magnesia) 30 ml PO HS PRN PRN Reason: Constipation Physical Exam - Constitutional Appears: No Acute Distress - Head Exam Head Exam: ATRAUMATIC - Eye Exam Eye Exam: absent: Scleral icterus - ENT Exam ENT Exam: Mucous Membranes Moist - Neck Exam Neck exam: Negative for: Meningismus - Respiratory Exam Respiratory Exam: absent: Rales, Rhonchi, Wheezes, Respiratory Distress - Cardiovascular Exam Cardiovascular Exam: REGULAR RHYTHM, +S1, +S2 - GI/Abdominal Exam GI & Abdominal Exam: Soft. absent: Tenderness - Rectal Exam Rectal Exam: Deferred - Neurological Exam Neurological exam: Alert, Oriented x3 - Psychiatric Exam Psychiatric exam: Normal Affect - Skin Skin Exam: Dry, Intact Results - Vital Signs Recent Vital Signs: Last Vital Signs Temp 98.2 F 08/17/18 06:00 Pulse 78 08/17/18 09:32 Resp 18 08/17/18 06:00 BP 124/76 08/17/18 09:32 Pulse Ox 95 08/16/18 20:49 - Labs Result Diagrams: 08/16/18 16:15 08/16/18 16:15 Labs: Laboratory Results - last 24 hr 08/16/18 08/16/18 08/16/18 16:15 16:15 18:40 WBC 6.4 RBC 4.57 Hgb 12.7 Hct 39.2 MCV 85.8 MCH 27.9 MCHC 32.5 L RDW 15.3 H Plt Count 383 MPV 9.2 Neut % (Auto) 58.5 Lymph % (Auto) 32.2 Shannon % (Auto) 5.7 Eos % (Auto) 2.7 Baso % (Auto) 0.9 Neut # (Auto) 3.7 Lymph # (Auto) 2.1 Shannon # (Auto) 0.4 Eos # (Auto) 0.2 Baso # (Auto) 0.1 Sodium 138 Potassium 3.8 Chloride 103 Carbon Dioxide 27 Anion Gap 12 BUN 15 Creatinine 0.4 L Est GFR ( Amer) > 60 Est GFR (Non-Af Amer) > 60 Random Glucose 106 H Calcium 8.8 Iron TIBC % Saturation Ferritin Total Bilirubin 0.5 AST 34 ALT 21 Alkaline Phosphatase 96 Troponin I < 0.0120 NT-Pro-B Natriuret Pep 131 Total Protein 7.5 Albumin 3.9 Globulin 3.6 Albumin/Globulin Ratio 1.1 Triglycerides Cholesterol LDL Cholesterol Direct HDL Cholesterol Vitamin B12 Free T4 Thyroxine (T4) TSH 3rd Generation Urine Color Urine Clarity Urine pH Ur Specific [place] Urine Protein Urine Glucose (UA) Urine Ketones Urine Blood Urine Nitrate Urine Bilirubin Urine Urobilinogen Ur Leukocyte Esterase Urine RBC (Auto) Urine Microscopic WBC Ur Squamous Epith Cells Urine Bacteria Urine Opiates Screen Negative Urine Methadone Screen Negative Ur Barbiturates Screen Negative Ur Phencyclidine Scrn Negative Ur Amphetamines Screen Negative U Benzodiazepines Scrn Positive H U Oth Cocaine Metabols Negative U Cannabinoids Screen Negative Alcohol, Quantitative < 10 08/16/18 08/17/18 08/17/18 18:40 06:50 06:50 WBC RBC Hgb Hct MCV MCH MCHC RDW Plt Count MPV Neut % (Auto) Lymph % (Auto) Shannon % (Auto) Eos % (Auto) Baso % (Auto) Neut # (Auto) Lymph # (Auto) Shannon # (Auto) Eos # (Auto) Baso # (Auto) Sodium Potassium Chloride Carbon Dioxide Anion Gap BUN Creatinine Est GFR ( Amer) Est GFR (Non-Af Amer) Random Glucose Calcium Iron 63 TIBC 244 L % Saturation 26 Ferritin 179.0 Total Bilirubin AST ALT Alkaline Phosphatase Troponin I NT-Pro-B Natriuret Pep Total Protein Albumin Globulin Albumin/Globulin Ratio Triglycerides 229 H Cholesterol 165 LDL Cholesterol Direct 98 HDL Cholesterol 37 Vitamin B12 564 Free T4 Thyroxine (T4) 11.9 H TSH 3rd Generation 2.35 Urine Color Yellow Urine Clarity Slighty-cloudy Urine pH 6.0 Ur Specific [place] 1.012 Urine Protein Negative Urine Glucose (UA) Neg Urine Ketones Negative Urine Blood Small Urine Nitrate Positive H Urine Bilirubin Negative Urine Urobilinogen 4.0 H Ur Leukocyte Esterase Small Urine RBC (Auto) 2 Urine Microscopic WBC 9 H Ur Squamous Epith Cells 3 Urine Bacteria Few H Urine Opiates Screen Urine Methadone Screen Ur Barbiturates Screen Ur Phencyclidine Scrn Ur Amphetamines Screen U Benzodiazepines Scrn U Oth Cocaine Metabols U Cannabinoids Screen Alcohol, Quantitative 08/17/18 06:50 WBC RBC Hgb Hct MCV MCH MCHC RDW Plt Count MPV Neut % (Auto) Lymph % (Auto) Shannon % (Auto) Eos % (Auto) Baso % (Auto) Neut # (Auto) Lymph # (Auto) Shannon # (Auto) Eos # (Auto) Baso # (Auto) Sodium Potassium Chloride Carbon Dioxide Anion Gap BUN Creatinine Est GFR ( Amer) Est GFR (Non-Af Amer) Random Glucose Calcium Iron TIBC % Saturation Ferritin Total Bilirubin AST ALT Alkaline Phosphatase Troponin I NT-Pro-B Natriuret Pep Total Protein Albumin Globulin Albumin/Globulin Ratio Triglycerides Cholesterol LDL Cholesterol Direct HDL Cholesterol Vitamin B12 Free T4 1.33 Thyroxine (T4) TSH 3rd Generation Urine Color Urine Clarity Urine pH Ur Specific [place] Urine Protein Urine Glucose (UA) Urine Ketones Urine Blood Urine Nitrate Urine Bilirubin Urine Urobilinogen Ur Leukocyte Esterase Urine RBC (Auto) Urine Microscopic WBC Ur Squamous Epith Cells Urine Bacteria Urine Opiates Screen Urine Methadone Screen Ur Barbiturates Screen Ur Phencyclidine Scrn Ur Amphetamines Screen U Benzodiazepines Scrn U Oth Cocaine Metabols U Cannabinoids Screen Alcohol, Quantitative Assessment & Plan (1) Depression Status: Acute Comment: psyche is managing
--- NOTE | 2018-08-17 15:31 | CARD ---
APPROVED REPORT Date of service: 08/16/2018 EKG Measurement Heart [id number] <Conclusion> Normal sinus rhythm Normal ECG
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
--- NOTE | 2018-08-18 11:12 | PCM.PYCHPN ---
Psychiatric Progress Note - Psychiatric Progress Note Patient seen today, length of contact: Pt evaluated, case discussed w/ team, chart reviewed Patient Chief Complaint: "I'm fine." Problems Identified/Issues Discussed: Patient evaluated w/ team. She denies feeling acutely depressed or anxious, but was tearful on evaluation. She reports good sleep. She states that she does not want to be in the hospital and is aware of the discharge process. No adverse effects to Remeron reported. She denied acute suicidal ideation. A + O x 3. Medication Change: No Medical Record Reviewed: Yes Consults ordered or reviewed: Medicine consult Mental Status Examination - Cognitive Function Orientation: Person, Place, Situation, Time Decription of patient's judgement and insights: Fair I/J - Mood Mood: Neutral - Affect Affect: Depressed - Speech Speech: Appropriate - Formal Thought Process Formal Thought Process: No Impairment Psychotic Thoughts and Behaviors: Denies AH/VH/paranoia - Suicidal Ideation Suicidal Ideation: No - Homicidal Ideation Homicidal Ideation: No Goal/Treatment Plan - Goal/Treatment Plan Need for Continued Stay: Severe functional impairment Progress Toward Problem(s) and Goals/Treatment Plan: Mood Disorder NOS -Obtain collateral history from family -SW to contact APS -Continue Remeron -Medicine consult -Will start disposition planning to determine safe discharge plan for the patient; patient is unable to care for herself due to physical disability
[2018-08-18 18:44] LABS: FOLATE 13.4 ng/mL
--- NOTE | 2018-08-19 08:48 | PCM.PYCHPN ---
Psychiatric Progress Note - Psychiatric Progress Note Patient seen today, length of contact: Pt evaluated, case discussed w/ team, chart reviewed Patient Chief Complaint: "I'm fine." Problems Identified/Issues Discussed: Patient denies acute depression/anxiety. She is agreeable to [facility] placement and understands that she is unable to care for herself due to her physical limitations. No acute SI/HI. Patient currently A + O x 3. No adverse effects to medications reported. SW to call APS and family to discuss disposition planning. Medication Change: No Medical Record Reviewed: Yes Consults ordered or reviewed: Medicine consult Mental Status Examination - Cognitive Function Orientation: Person, Place, Situation, Time Decription of patient's judgement and insights: Fair I/J - Mood Mood: Neutral - Affect Affect: Broad - Speech Speech: Appropriate - Formal Thought Process Formal Thought Process: No Impairment Psychotic Thoughts and Behaviors: Denies AH/VH/paranoia - Suicidal Ideation Suicidal Ideation: No - Homicidal Ideation Homicidal Ideation: No Goal/Treatment Plan - Goal/Treatment Plan Progress Toward Problem(s) and Goals/Treatment Plan: Mood Disorder NOS; patient unable to be discharged to home at this time due to inability to care for herself and possibly unsafe home environment. SW to call APS and family to discuss disposition planning. Patient is agreeable to usp placement at this time. -Continue Remeron -Medicine consult
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
--- NOTE | 2018-08-21 10:24 | PCM.PYCHPN ---
Psychiatric Progress Note - Psychiatric Progress Note Patient seen today, length of contact: Pt evaluated, case discussed w/ team, chart reviewed Patient Chief Complaint: Inability to care for self Problems Identified/Issues Discussed: MOCA testing done today; patient scored 14/30. She scored deficits in visuospatial function, memory, attention, language, and abstraction. No new events. Patient reports her mood is stable. She is agreeable to long term placement and understands that she is unable to care for herself due to her physical limitations. No acute SI/HI. Patient currently A + O x 3. No adverse effects to medications reported. Medication Change: No Medical Record Reviewed: Yes Consults ordered or reviewed: Medicine consult Mental Status Examination - Cognitive Function Orientation: Person, Place, Situation, Time Memory: Impaired Attention: Poor Concentration: Poor Association: WNL Fund of Knowledge: Poor Decription of patient's judgement and insights: Chronic limitations in I/J due to neurocognitive impairment - Mood Mood: Neutral - Affect Affect: Broad - Speech Speech: Appropriate - Formal Thought Process Formal Thought Process: No Impairment Psychotic Thoughts and Behaviors: Denies AH/VH/paranoia - Suicidal Ideation Suicidal Ideation: No - Homicidal Ideation Homicidal Ideation: No Goal/Treatment Plan - Goal/Treatment Plan Need for Continued Stay: Severe functional impairment Progress Toward Problem(s) and Goals/Treatment Plan: Major Neurocognitive Disorder, Mood Disorder NOS; patient unable to be discharged to home at this time due to inability to care for herself and unsafe home environment. Patient is agreeable to long term placement at this time. -Continue Remeron -Medicine consult -Individual and group therapy -Disposition planning
--- NOTE | 2018-08-22 08:11 | PCM.PYCHPN ---
Psychiatric Progress Note - Psychiatric Progress Note Patient seen today, length of contact: Pt evaluated, case discussed w/ team, chart reviewed Patient Chief Complaint: Inability to care for self Problems Identified/Issues Discussed: No new events overnight. Patient reports her mood is stable. No acute SI/HI. No adverse effects to medications reported. Medication Change: No Medical Record Reviewed: Yes Consults ordered or reviewed: Medicine consult Mental Status Examination - Cognitive Function Orientation: Person, Place, Situation, Time Memory: Impaired Attention: Poor Concentration: Poor Association: WNL Fund of Knowledge: Poor Decription of patient's judgement and insights: Chronic limitations in I/J due to neurocognitive impairment - Mood Mood: Neutral - Affect Affect: Broad - Speech Speech: Appropriate - Formal Thought Process Formal Thought Process: No Impairment Psychotic Thoughts and Behaviors: Denies AH/VH/paranoia - Suicidal Ideation Suicidal Ideation: No - Homicidal Ideation Homicidal Ideation: No Goal/Treatment Plan - Goal/Treatment Plan Need for Continued Stay: Severe functional impairment Progress Toward Problem(s) and Goals/Treatment Plan: Major Neurocognitive Disorder, Mood Disorder NOS; patient unable to be discharged to home at this time due to inability to care for herself and unsafe home environment. Patient is agreeable to [facility] placement at this time. -Continue Remeron -Medicine consult -Individual and group therapy -Disposition planning
--- NOTE | 2018-08-22 12:07 | CP.PCM.CON ---
History of Present Illness - History of Present Illness History of Present Illness: Pt is an 78 year old female admitted to [facility] geropsych unit and referred to the leader writer for evaluation. On the DRS, pt scored an overall score of 100. Pt scored in the Deficient Range on all tasks. Pt's Attention, Construction, Memory, Initiation, and Memory skills all fell in the Deficient Range. Pt is requesting skilled nursing placement. Overall 100 Attention 28- Deficient Construction 3- Deficient Conceptualization 26- Deficient Initiation 31- Deficient Memory 12- Deficient Significant cognitive deficits evident. Thank you fort his referral, Dr. Daugherty Past Patient History - Infectious Disease Hx of Infectious Diseases: None - Tetanus Immunizations Tetanus Immunization: Unknown - Past Medical History & Family History Past Medical History?: Yes - Past Social History Smoking Status: Never Smoked Chewing Tobacco Use: No Cigar Use: No Alcohol: None Drugs: Denies - CARDIAC Hx Cardiac Disorders: Yes Hx Cardia Arrhythmia: Yes Hx Hypertension: Yes Hx Pacemaker: Yes - PULMONARY Hx Tuberculosis: No - NEUROLOGICAL Hx Seizures: No - HEENT Hx HEENT Problems: Yes Hx Deafness: Yes - RENAL Hx Chronic Kidney Disease: No - ENDOCRINE/METABOLIC Hx Endocrine Disorders: No - HEMATOLOGICAL/ONCOLOGICAL Hx Human Immunodeficiency Virus (HIV): No - INTEGUMENTARY Hx Dermatological Problems: No - MUSCULOSKELETAL/RHEUMATOLOGICAL Hx Falls: No - GASTROINTESTINAL Hx Gastrointestinal Disorders: No - GENITOURINARY/GYNECOLOGICAL Hx Sexually Transmitted Disorders: No - PSYCHIATRIC Hx Depression: Yes Hx Substance Use: No - SURGICAL HISTORY Hx Cholecystectomy: Yes - ANESTHESIA Hx Anesthesia: Yes Hx Anesthesia Reactions: No Hx Malignant Hyperthermia: No Meds Allergies/Adverse Reactions: Allergies Allergy/AdvReac Type Severity Reaction Status Date / Time azithromycin Allergy ITCHING Verified 08/16/18 14:18 - Medications Medications: Current Medications Acetaminophen (Tylenol 325mg Tab) 650 mg PO Q4 PRN PRN Reason: Pain, moderate (4-7) Last Admin: 08/21/18 22:51 Dose: 650 mg Al Hydrox/Mg Hydrox/Simethicone (Maalox Plus 30 Ml) 30 ml PO Q4 PRN PRN Reason: Dyspepsia Amlodipine Besylate (Norvasc) 5 mg PO DAILY [facility] Last Admin: 08/22/18 08:38 Dose: Not Given Bismuth Subsalicylate (Pepto-Bismol) 524 mg PO Q4 PRN PRN Reason: Diarrhea Donepezil HCl (Aricept) 5 mg PO HS [facility] Last Admin: 08/21/18 21:10 Dose: 5 mg Ibuprofen (Motrin Tab) 600 mg PO Q8 PRN PRN Reason: Pain, severe (8-10) Last Admin: 08/21/18 21:10 Dose: 600 mg Lorazepam (Ativan) 0.5 mg PO HS PRN PRN Reason: Insomnia Stop: 08/30/18 23:12 Lorazepam (Ativan) 0.5 mg PO Q6 PRN PRN Reason: Anixety/Agitation Stop: 08/30/18 23:12 Magnesium Hydroxide (Milk Of Magnesia) 30 ml PO HS PRN PRN Reason: Constipation Mirtazapine (Remeron) 7.5 mg PO HS [facility] Last Admin: 08/21/18 21:09 Dose: 7.5 mg Nitrofurantoin Macrocrystals (Macrobid) 100 mg PO Q12 [facility]; Protocol Last Admin: 08/22/18 08:37 Dose: 100 mg Results - Vital Signs Recent Vital Signs: Last Vital Signs Temp 98.1 F 08/22/18 06:00 Pulse 72 08/22/18 08:38 Resp 18 08/22/18 06:00 BP 102/70 08/22/18 08:38 Pulse Ox 95 08/16/18 20:49 - Labs Result Diagrams: 08/16/18 16:15 08/16/18 16:15
--- NOTE | 2018-08-23 09:43 | PCM.PYCHPN ---
Psychiatric Progress Note - Psychiatric Progress Note Patient seen today, length of contact: Pt evaluated, case discussed w/ team, chart reviewed Patient Chief Complaint: pt has remained with significant cognitive impairment and remains with limited insight and need further stabilization Medication Change: No Medical Record Reviewed: Yes Mental Status Examination - Cognitive Function Orientation: Person, Place, Situation, Time Memory: Impaired Attention: Poor Concentration: Poor Association: WNL Fund of Knowledge: Poor - Mood Mood: Neutral - Affect Affect: Broad - Speech Speech: Appropriate - Formal Thought Process Formal Thought Process: No Impairment - Suicidal Ideation Suicidal Ideation: No - Homicidal Ideation Homicidal Ideation: No Goal/Treatment Plan - Goal/Treatment Plan Need for Continued Stay: Severe functional impairment Progress Toward Problem(s) and Goals/Treatment Plan: will continue to engage pt in unit therapeutic milleu disposition as per dr talley.
--- NOTE | 2018-08-24 14:58 | PCM.PYCHPN ---
Psychiatric Progress Note - Psychiatric Progress Note Patient seen today, length of contact: Pt evaluated, case discussed w/ team, chart reviewed Patient Chief Complaint: pt has remained confused tday with significant cognitive impairment and remains with limited insight and need further stabilization Medication Change: No Medical Record Reviewed: Yes Mental Status Examination - Cognitive Function Orientation: Person, Place, Situation, Time Memory: Impaired Attention: Poor Concentration: Poor Association: WNL Fund of Knowledge: Poor - Mood Mood: Neutral - Affect Affect: Broad - Speech Speech: Appropriate - Formal Thought Process Formal Thought Process: No Impairment - Suicidal Ideation Suicidal Ideation: No - Homicidal Ideation Homicidal Ideation: No Goal/Treatment Plan - Goal/Treatment Plan Need for Continued Stay: Severe functional impairment Progress Toward Problem(s) and Goals/Treatment Plan: will continue to engage pt in unit therapeutic milleu disposition as per dr talley.
--- NOTE | 2018-08-25 08:06 | PCM.PYCHPN ---
Psychiatric Progress Note - Psychiatric Progress Note Patient seen today, length of contact: Pt evaluated, case discussed w/ team, chart reviewed Patient Chief Complaint: Inability to care for self Problems Identified/Issues Discussed: No new events over the weekend. Patient reports her mood is stable. No acute SI/HI. No adverse effects to medications reported. Medication Change: No Medical Record Reviewed: Yes Consults ordered or reviewed: Medicine consult Mental Status Examination - Cognitive Function Orientation: Person, Place, Situation, Time Memory: Impaired Attention: Poor Concentration: Poor Association: WNL Fund of Knowledge: Poor Decription of patient's judgement and insights: Chronic limitations in insight/judgment due to dementia - Mood Mood: Neutral - Affect Affect: Broad - Speech Speech: Appropriate - Formal Thought Process Formal Thought Process: No Impairment Psychotic Thoughts and Behaviors: No AH/VH/paranoia/delusions - Suicidal Ideation Suicidal Ideation: No - Homicidal Ideation Homicidal Ideation: No Goal/Treatment Plan - Goal/Treatment Plan Need for Continued Stay: Severe functional impairment Progress Toward Problem(s) and Goals/Treatment Plan: Major Neurocognitive Disorder, Mood Disorder NOS -Continue Remeron -Medicine consult -Individual and group therapy -Disposition planning- will refer for [facility] placement as patient is unable to care for herself due to physical disability and neurocognitive impairment
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
--- NOTE | 2018-08-26 08:26 | PCM.PYCHPN ---
Psychiatric Progress Note - Psychiatric Progress Note Patient seen today, length of contact: Pt evaluated, case discussed w/ team, chart reviewed Patient Chief Complaint: Inability to care for self Problems Identified/Issues Discussed: No new events. No behavioral issues. Patient reports her mood is stable. No acute SI/HI. No adverse effects to medications reported. Medication Change: No Medical Record Reviewed: Yes Consults ordered or reviewed: Medicine consult Mental Status Examination - Cognitive Function Orientation: Person, Place, Situation, Time Memory: Impaired Attention: Poor Concentration: Poor Association: WNL Fund of Knowledge: Poor Decription of patient's judgement and insights: Chronic limitations in insight/judgment due to dementia - Mood Mood: Neutral - Affect Affect: Broad - Speech Speech: Appropriate - Formal Thought Process Formal Thought Process: No Impairment Psychotic Thoughts and Behaviors: No AH/VH/paranoia/delusions - Suicidal Ideation Suicidal Ideation: No - Homicidal Ideation Homicidal Ideation: No Goal/Treatment Plan - Goal/Treatment Plan Need for Continued Stay: Severe functional impairment Progress Toward Problem(s) and Goals/Treatment Plan: Major Neurocognitive Disorder, Mood Disorder NOS -Continue Remeron -Medicine consult -Individual and group therapy -Disposition planning- will refer for skilled nursing placement as patient is unable to care for herself due to physical disability and neurocognitive impairment
--- NOTE | 2018-08-27 12:06 | PCM.PYCHPN ---
Psychiatric Progress Note - Psychiatric Progress Note Patient seen today, length of contact: Pt evaluated, case discussed w/ team, chart reviewed Patient Chief Complaint: Inability to care for self Problems Identified/Issues Discussed: No new events overnight. Patient reports her mood is stable. No acute SI/HI. No adverse effects to medications reported. Medication Change: No Medical Record Reviewed: Yes Consults ordered or reviewed: Medicine consult Mental Status Examination - Cognitive Function Orientation: Person, Place, Situation, Time Memory: Impaired Attention: Poor Concentration: Poor Association: WNL Fund of Knowledge: Poor Decription of patient's judgement and insights: Chronic limitations in insight/judgment due to dementia - Mood Mood: Neutral - Affect Affect: Broad - Speech Speech: Appropriate - Formal Thought Process Formal Thought Process: No Impairment Psychotic Thoughts and Behaviors: No AH/VH/paranoia/delusions - Suicidal Ideation Suicidal Ideation: No - Homicidal Ideation Homicidal Ideation: No Goal/Treatment Plan - Goal/Treatment Plan Need for Continued Stay: Severe functional impairment Progress Toward Problem(s) and Goals/Treatment Plan: Major Neurocognitive Disorder, Mood Disorder NOS -Continue Remeron -Medicine consult -Individual and group therapy -Disposition planning- will refer for [facility] placement as patient is unable to care for herself due to physical disability and neurocognitive impairment
--- NOTE | 2018-08-28 10:14 | PCM.PYCHPN ---
Psychiatric Progress Note - Psychiatric Progress Note Patient seen today, length of contact: Pt evaluated, case discussed w/ team, chart reviewed Patient Chief Complaint: Inability to care for self Problems Identified/Issues Discussed: No new events. Patient reports her mood is stable. No acute SI/HI. No adverse effects to medications reported. Medication Change: No Medical Record Reviewed: Yes Consults ordered or reviewed: Medicine consult Mental Status Examination - Cognitive Function Orientation: Person, Place, Situation, Time Memory: Impaired Attention: Poor Concentration: Poor Association: WNL Fund of Knowledge: Poor Decription of patient's judgement and insights: Chronic limitations in insight/judgment due to dementia - Mood Mood: Neutral - Affect Affect: Broad - Speech Speech: Appropriate - Formal Thought Process Formal Thought Process: No Impairment Psychotic Thoughts and Behaviors: No AH/VH/paranoia/delusions - Suicidal Ideation Suicidal Ideation: No - Homicidal Ideation Homicidal Ideation: No Goal/Treatment Plan - Goal/Treatment Plan Need for Continued Stay: Severe functional impairment Progress Toward Problem(s) and Goals/Treatment Plan: Major Neurocognitive Disorder, Mood Disorder NOS -Continue Remeron -Medicine consult -Individual and group therapy -Physical therapy -Disposition planning- pending authorization from the insurance company to refer to [facility]; see SW notes
--- NOTE | 2018-08-28 13:25 | CP.PCM.CON ---
History of Present Illness - History of Present Illness History of Present Illness: Orthopedic consultation Dr. Rodriges 78F complains of B knee pain R>>L since February. She says she used to walk with a cane prior to this time when she fell, and has not been walking much since and was house bound basically. She has been hospitalized since 08/16 and has been max assist into wheelchair during entire admission. PT recently evaluated patient for eval for [facility], and orthopedic consultation was suggested. Patient denies history of fracture in her knees, denies prior injection. Known history of arthritis. Denies fever/chills. No recent trauma or falls Review of Systems - Review of Systems All systems: reviewed and no additional remarkable complaints except Past Patient History - Infectious Disease Hx of Infectious Diseases: None - Tetanus Immunizations Tetanus Immunization: Unknown - Past Medical History & Family History Past Medical History?: Yes Past Family History: Reviewed and not pertinent - Past Social History Smoking Status: Never Smoked Chewing Tobacco Use: No Cigar Use: No Alcohol: None Drugs: Denies - CARDIAC Hx Cardiac Disorders: Yes Hx Cardia Arrhythmia: Yes Hx Hypertension: Yes Hx Pacemaker: Yes - PULMONARY Hx Tuberculosis: No - NEUROLOGICAL Hx Seizures: No - HEENT Hx HEENT Problems: Yes Hx Deafness: Yes - RENAL Hx Chronic Kidney Disease: No - ENDOCRINE/METABOLIC Hx Endocrine Disorders: No - HEMATOLOGICAL/ONCOLOGICAL Hx Human Immunodeficiency Virus (HIV): No - INTEGUMENTARY Hx Dermatological Problems: No - MUSCULOSKELETAL/RHEUMATOLOGICAL Hx Falls: No - GASTROINTESTINAL Hx Gastrointestinal Disorders: No - GENITOURINARY/GYNECOLOGICAL Hx Sexually Transmitted Disorders: No - PSYCHIATRIC Hx Depression: Yes Hx Substance Use: No - SURGICAL HISTORY Hx Cholecystectomy: Yes - ANESTHESIA Hx Anesthesia: Yes Hx Anesthesia Reactions: No Hx Malignant Hyperthermia: No Meds Home Medications: Home Medication List Medication Instructions Recorded Confirmed Type Donepezil [Aricept] 5 mg PO HS tab 08/26/18 Rx Mirtazapine [Remeron] 7.5 mg PO HS tab 08/26/18 Rx Allergies/Adverse Reactions: Allergies Allergy/AdvReac Type Severity Reaction Status Date / Time azithromycin Allergy ITCHING Verified 08/16/18 14:18 - Medications Medications: Current Medications Acetaminophen (Tylenol 325mg Tab) 650 mg PO Q4 PRN PRN Reason: Pain, moderate (4-7) Last Admin: 08/22/18 21:23 Dose: 650 mg Al Hydrox/Mg Hydrox/Simethicone (Maalox Plus 30 Ml) 30 ml PO Q4 PRN PRN Reason: Dyspepsia Amlodipine Besylate (Norvasc) 5 mg PO DAILY [facility] Last Admin: 08/28/18 08:40 Dose: Not Given Aspirin (Aspirin Chewable) 81 mg PO DAILY [facility] Last Admin: 08/28/18 08:41 Dose: 81 mg Bismuth Subsalicylate (Pepto-Bismol) 524 mg PO Q4 PRN PRN Reason: Diarrhea Donepezil HCl (Aricept) 5 mg PO [facility] Last Admin: 08/27/18 21:07 Dose: 5 mg Ibuprofen (Motrin Tab) 600 mg PO Q8 PRN PRN Reason: Pain, severe (8-10) Last Admin: 08/28/18 08:39 Dose: 600 mg Lorazepam (Ativan) 0.5 mg PO HS PRN PRN Reason: Insomnia Stop: 08/30/18 23:12 Last Admin: 08/23/18 23:39 Dose: 0.5 mg Lorazepam (Ativan) 0.5 mg PO Q6 PRN PRN Reason: Anixety/Agitation Stop: 08/30/18 23:12 Magnesium Hydroxide (Milk Of Magnesia) 30 ml PO HS PRN PRN Reason: Constipation Mirtazapine (Remeron) 7.5 mg PO [facility] Last Admin: 08/27/18 21:07 Dose: 7.5 mg Physical Exam - Constitutional Appears: Well, No Acute Distress (sitting in wheelchair in NAD) - Head Exam Head Exam: ATRAUMATIC - Neck Exam Neck exam: Positive for: Full Rom, Normal Inspection - Respiratory Exam Respiratory Exam: NORMAL BREATHING PATTERN - Cardiovascular Exam Additional comments: +DP/PT - Expanded Lower Extremities Exam Right Knee exam: deformity (mild valgus, no erythema, minimal effusion, appears arthritic, no lig laxity, calves soft NT neg homans), full ROM, tenderness (mild, generalized) Neuro vacular tendon exam: no vascular compromise Left Knee exam: full knee extension, full ROM, tenderness (generalized, no obvious effusion, no erythema, less tender) Ankle exam: FULL ROM Neuro vacular tendon exam: no vascular compromise - Neurological Exam Neurological exam: Alert, Oriented x3 - Psychiatric Exam Psychiatric exam: Normal Affect, Normal Mood - Skin Skin Exam: Dry, Intact, Normal Color, Warm Results - Vital Signs Recent Vital Signs: Last Vital Signs Temp 98.1 F 08/28/18 06:00 Pulse 90 08/28/18 06:00 Resp 18 08/28/18 06:00 BP 102/60 08/28/18 06:00 Pulse Ox 95 08/16/18 20:49 - Labs Result Diagrams: 08/16/18 16:15 08/16/18 16:15 - EKG Data EKG comments: atient Name / ID : HELADIO SEALS E / [id number] Exam Date : 07/03/2018 17:21:36 ( Approved ) Study Comment : Sex / Age : F / 78Y Creator : Bo Martinez MD Dictator : Bo Martinez MD Bridge Ironworker Helper : Glass Washer : Bo Martinez MD Approver2 : Report Date : 07/04/2018 14:55:03 My Comment : Date of service: 07/03/2018 PROCEDURE: Bilateral Knee Radiographs. HISTORY: Bilateral leg Pain. No history of recent/ related trauma provided COMPARISON: None. FINDINGS: BONES: Right Knee: No acute fracture. Proliferative hypertrophic changes emanating from the femoral condyle and tibial plateau regions. Left Knee: No acute fracture. Proliferative hypertrophic changes emanating from the femoral condyle and tibial plateau regions. JOINTS: Right Knee: Medial compartment narrowing. Lateral chondrocalcinosis. Left knee: Medial compartment narrowing is symmetrical. Lateral chondrocalcinosis. SOFT TISSUES: Right Knee: Normal. Left Knee: Normal. JOINT EFFUSION: Right Knee: None. Left Knee: None. OTHER FINDINGS: None. IMPRESSION: No acute findings related to/ accounting for the clinical presentation. Additional benign and/or incidental findings described above. Concordant results with the preliminary interpretation rendered by the emergency department physician\PA at the conclusion of the procedure. Assessment & Plan (1) Degenerative arthritis of right knee Assessment and Plan: imaging reviewed from prior ER admission 07/03/2018 which demonstrates moderate bilateral tricompartmental DJD with also noted chondrocalcinosis will repeat xrays consider injection PT/OT, patient deconditioned as well d/w Dr. Rodriges, agrees with above Status: Acute (2) Degenerative arthritis of left knee Status: Acute
--- NOTE | 2018-08-28 15:55 | RAD ---
Date of service: 08/28/2018 PROCEDURE: Bilateral Knee Radiographs. HISTORY: B knee pain COMPARISON: Radiographs of the right knee from 07/03/2018 TECHNIQUE: 4 views obtained. FINDINGS: BONES: There is severe diffuse bone demineralization. No acute displaced fracture or bone destruction. Bone alignment is normal. JOINTS: There is severe tricompartmental degenerative osteoarthrosis with reduced joint spaces, marginal osteophytes, chondrocalcinosis and tibial spiking, worse in the medial compartment. SOFT TISSUES: Right Knee: Normal. Left Knee: Normal. JOINT EFFUSION: There are small suprapatellar joint effusions. OTHER FINDINGS: None. IMPRESSION: Severe tricompartmental degenerative osteoarthrosis, worse in the medial compartments. Small suprapatellar joint effusions.
[2018-08-29] MEDS ORDERED: MethylPREDNISolone Depo 40 mg/ml Inj IAA ONE (09:01)
[2018-08-29] MEDS ORDERED: Bupivacaine HCl 0.5% PF (10 ml) Inj IJ ONE (09:01)
--- NOTE | 2018-08-29 09:30 | PCM.PYCHPN ---
Psychiatric Progress Note - Psychiatric Progress Note Patient seen today, length of contact: Pt evaluated, case discussed w/ team, chart reviewed Patient Chief Complaint: Inability to care for self Problems Identified/Issues Discussed: Ortho and PT consult appreciated. Patient reports her mood is stable. No acute SI/HI. No adverse effects to medications reported. Medication Change: No Medical Record Reviewed: Yes Consults ordered or reviewed: Medicine consult, Orthopedic consult, Physical Therapy Mental Status Examination - Cognitive Function Orientation: Person, Place, Situation, Time Memory: Impaired Attention: Poor Concentration: Poor Association: WNL Fund of Knowledge: Poor Decription of patient's judgement and insights: Chronic limitations in insight/judgment due to dementia - Mood Mood: Neutral - Affect Affect: Broad - Speech Speech: Appropriate - Formal Thought Process Formal Thought Process: No Impairment Psychotic Thoughts and Behaviors: No AH/VH/paranoia/delusions - Suicidal Ideation Suicidal Ideation: No - Homicidal Ideation Homicidal Ideation: No Goal/Treatment Plan - Goal/Treatment Plan Need for Continued Stay: Severe functional impairment Progress Toward Problem(s) and Goals/Treatment Plan: Major Neurocognitive Disorder, Mood Disorder NOS; Patient is psychiatrically stable for referral to ad terminal makeup operator placement -Continue Remeron -Medicine consult -Individual and group therapy -Physical therapy -Ortho consult -Disposition planning- refer to ad terminal makeup operator placement
--- NOTE | 2018-08-29 12:17 | CP.PCM.PN ---
Subjective - Date & Time of Evaluation Date of Evaluation: 08/29/18 Time of Evaluation: 11:00 - Subjective Subjective: Patient complains of continued pain in her knees, right is worse. Advised patient she has arthritis and would benefit from injection to help pain and inflammation. Repeated that the injection doesn't change the arthritis and the injection is not going to make her be able to walk again, that she is going to need lots of PT for that. Denies numbness/tingling. No new complaints. Review of Systems - Musculoskeletal Musculoskeletal: As Par HPI Objective - Vital Signs/Intake and Output Vital Signs (last 24 hours): Temp Pulse Resp BP Pulse Ox 97.1 F L 81 18 101/64 95 08/29/18 06:00 08/29/18 06:00 08/29/18 06:00 08/29/18 06:00 08/16/18 20:49 - Medications Medications: Current Medications Acetaminophen (Tylenol 325mg Tab) 650 mg PO Q4 PRN PRN Reason: Pain, moderate (4-7) Last Admin: 08/22/18 21:23 Dose: 650 mg Al Hydrox/Mg Hydrox/Simethicone (Maalox Plus 30 Ml) 30 ml PO Q4 PRN PRN Reason: Dyspepsia Aspirin (Aspirin Chewable) 81 mg PO DAILY [facility] Last Admin: 08/29/18 08:41 Dose: 81 mg Bismuth Subsalicylate (Pepto-Bismol) 524 mg PO Q4 PRN PRN Reason: Diarrhea Donepezil HCl (Aricept) 5 mg PO HS [facility] Last Admin: 08/28/18 21:15 Dose: 5 mg Ibuprofen (Motrin Tab) 600 mg PO Q8 PRN PRN Reason: Pain, severe (8-10) Last Admin: 08/29/18 08:40 Dose: 600 mg Lorazepam (Ativan) 0.5 mg PO HS PRN PRN Reason: Insomnia Stop: 08/30/18 23:12 Last Admin: 08/23/18 23:39 Dose: 0.5 mg Lorazepam (Ativan) 0.5 mg PO Q6 PRN PRN Reason: Anixety/Agitation Stop: 08/30/18 23:12 Magnesium Hydroxide (Milk Of Magnesia) 30 ml PO HS PRN PRN Reason: Constipation Mirtazapine (Remeron) 7.5 mg PO HS [facility] Last Admin: 08/28/18 21:15 Dose: 7.5 mg - Labs Labs: 08/16/18 16:15 08/16/18 16:15 - Constitutional Appears: No Acute Distress - Head Exam Head Exam: ATRAUMATIC - Neck Exam Neck Exam: Full ROM, Normal Inspection - Respiratory Exam Respiratory Exam: NORMAL BREATHING PATTERN - Cardiovascular Exam Additional comments: +DP/OPT pulses - Extremities Exam Additional comments: Right knee: (mild valgus, no erythema, minimal effusion, appears arthritic, no lig laxity, calves soft NT neg homans), ROM 0-90 without pain tenderness (mild, generalized) Left knee, no erythema, no laxity, full ROM - Psychiatric Exam Psychiatric exam: Normal Affect, Normal Mood - Skin Skin Exam: Dry, Intact, Normal Color, Warm Assessment and Plan (1) Degenerative arthritis of right knee Assessment & Plan: Risks, benefits, alternatives of knee intraarticular inection were explained to the patient in detail, patient verbally consented to procedure. The patients right knee was prepped in the usual sterile fashion with chloroprep, then inserted a 21-gauge, 1 inch needle into the knee joint using anterior lateral approach. Through this needle a solution of 40mg Depo-medrol and 4cc 0.5% Marcaine was given. The needle was removed and a sterile dressing was applied. Patient tolerated the procedure well, and felt relief post procedure. There were no complications. Continue PT/OT for ambulation training orthopedically stable continue conservative mgmt of DJD f/u Dr. Rodriges as outpatient will follow patient while in house d/w Dr. Rodriges, agrees with above Status: Acute (2) Degenerative arthritis of left knee Status: Acute Procedures Attestation:: I certify that I have explained the specified Operation(s) or Procedure(s), risks, benefits and reasonable alternatives to the Patient and/or other person responsible. The opportunity was given to ask questions and all questions answered - Joint Aspiration/Injection Joint #1 Consent Obtained: Verbal Consent Time Out Performed: Yes Side of Body: Right Joint Aspirated: Knee Ultrasound Guidance Used: No Skin Prep: Chlorprep Needle Size Used: Other (21g) Medication Injected: Methylprednisolone (40mg and 0.5% marcaine) Patient Tolorated Procedure: Well Complications: None Radiology Interpretation - Radiology Interpretation #2 Interpretation: Patient Name / ID : HELADIO SEALS / [id number] Exam Date : 08/28/2018 14:31:53 ( Approved ) Study Comment : Sex / Age : F / 78Y Creator : Lesa Olsen MD Dictator : Lesa Olsen MD Site Reliability Engineer : Medical Representative : Lesa Olsen MD Approver2 : Report Date : 08/28/2018 15:51:29 My Comment : Date of service: 08/28/2018 PROCEDURE: Bilateral Knee Radiographs. HISTORY: B knee pain COMPARISON: Radiographs of the right knee from 07/03/2018 TECHNIQUE: 4 views obtained. FINDINGS: BONES: There is severe diffuse bone demineralization. No acute displaced fracture or bone destruction. Bone alignment is normal. JOINTS: There is severe tricompartmental degenerative osteoarthrosis with reduced joint spaces, marginal osteophytes, chondrocalcinosis and tibial spiking, worse in the medial compartment. SOFT TISSUES: Right Knee: Normal. Left Knee: Normal. JOINT EFFUSION: There are small suprapatellar joint effusions. OTHER FINDINGS: None. IMPRESSION: Severe tricompartmental degenerative osteoarthrosis, worse in the medial compartments. Small suprapatellar joint effusions.
--- NOTE | 2018-08-30 09:33 | PCM.PYCHPN ---
Psychiatric Progress Note - Psychiatric Progress Note Patient seen today, length of contact: Pt evaluated, case discussed w/ team, chart reviewed Patient Chief Complaint: Inability to care for self Problems Identified/Issues Discussed: Patient reports her mood is stable. No acute SI/HI. No adverse effects to medications reported. Patient will need oil heaterman placement as she is not able to care for herself due to physical and cognitive deficits. Medication Change: No Medical Record Reviewed: Yes Consults ordered or reviewed: Medicine consult, Orthopedic consult, Physical Therapy Mental Status Examination - Cognitive Function Orientation: Person, Place, Situation, Time Memory: Impaired Attention: Poor Concentration: Poor Association: WNL Fund of Knowledge: Poor Decription of patient's judgement and insights: Chronic limitations in insight/judgment due to dementia - Mood Mood: Neutral - Affect Affect: Broad - Speech Speech: Appropriate - Formal Thought Process Formal Thought Process: No Impairment Psychotic Thoughts and Behaviors: No AH/VH/paranoia/delusions - Suicidal Ideation Suicidal Ideation: No - Homicidal Ideation Homicidal Ideation: No Goal/Treatment Plan - Goal/Treatment Plan Need for Continued Stay: Severe functional impairment Progress Toward Problem(s) and Goals/Treatment Plan: Major Neurocognitive Disorder, Mood Disorder NOS; Patient is psychiatrically stable for referral to longterm placement -Continue Remeron -Medicine consult -Individual and group therapy -Physical therapy -Ortho consult -Disposition planning- refer to oil heaterman placement
--- NOTE | 2018-08-31 09:26 | PCM.PYCHPN ---
Psychiatric Progress Note - Psychiatric Progress Note Patient seen today, length of contact: Pt evaluated, case discussed w/ team, chart reviewed Patient Chief Complaint: Inability to care for self Problems Identified/Issues Discussed: No new events overnight. Patient reports her mood is stable. No acute SI/HI. No adverse effects to medications reported. Patient will need correction placement as she is not able to care for herself due to physical and cognitive deficits. Medication Change: No Medical Record Reviewed: Yes Consults ordered or reviewed: Medicine consult, Orthopedic consult, Physical Therapy Mental Status Examination - Cognitive Function Orientation: Person, Place, Situation, Time Memory: Impaired Attention: Poor Concentration: Poor Association: WNL Fund of Knowledge: Poor Decription of patient's judgement and insights: Chronic limitations in insight/judgment due to dementia - Mood Mood: Neutral - Affect Affect: Broad - Speech Speech: Appropriate - Formal Thought Process Formal Thought Process: No Impairment Psychotic Thoughts and Behaviors: No AH/VH/paranoia/delusions - Suicidal Ideation Suicidal Ideation: No - Homicidal Ideation Homicidal Ideation: No Goal/Treatment Plan - Goal/Treatment Plan Need for Continued Stay: Severe functional impairment Progress Toward Problem(s) and Goals/Treatment Plan: Major Neurocognitive Disorder, Mood Disorder NOS; Patient is psychiatrically stable for referral to correction placement -Continue Remeron -Medicine consult -Individual and group therapy -Physical therapy -Ortho consult -Disposition planning- refer to extermination supervisor placement
--- NOTE | 2018-09-01 08:41 | PCM.PYCHPN ---
Psychiatric Progress Note - Psychiatric Progress Note Patient seen today, length of contact: Pt evaluated, case discussed w/ team, chart reviewed Patient Chief Complaint: Inability to care for self Problems Identified/Issues Discussed: No new events over the weekend. Patient reports her mood is stable. No acute SI/HI. No adverse effects to medications reported. Patient will need dedicated intermodal truck driver placement as she is not able to care for herself due to physical and cognitive deficits. Medication Change: No Medical Record Reviewed: Yes Consults ordered or reviewed: Medicine consult, Orthopedic consult, Physical Therapy Mental Status Examination - Cognitive Function Orientation: Person, Place, Situation, Time Memory: Impaired Attention: Poor Concentration: Poor Association: WNL Fund of Knowledge: Poor Decription of patient's judgement and insights: Chronic limitations in insight/judgment due to dementia - Mood Mood: Neutral - Affect Affect: Broad - Speech Speech: Appropriate - Formal Thought Process Formal Thought Process: No Impairment Psychotic Thoughts and Behaviors: No AH/VH/paranoia/delusions - Suicidal Ideation Suicidal Ideation: No - Homicidal Ideation Homicidal Ideation: No Goal/Treatment Plan - Goal/Treatment Plan Need for Continued Stay: Severe functional impairment Progress Toward Problem(s) and Goals/Treatment Plan: Major Neurocognitive Disorder, Mood Disorder NOS; Patient is psychiatrically stable for referral to dedicated intermodal truck driver placement -Continue Remeron -Medicine consult -Individual and group therapy -Physical therapy -Ortho consult -Disposition planning- refer to [facility] placement
--- NOTE | 2018-09-01 14:51 | CP.PCM.PN ---
Subjective - Date & Time of Evaluation Date of Evaluation: 09/01/18 Time of Evaluation: 12:00 - Subjective Subjective: Patient seen and examined at bedside. She notes her right knee pain has improved s/p steroid injection. She has moderate left knee pain. She has not had therapy yet today or yesterday. No new complaints. Objective - Vital Signs/Intake and Output Vital Signs (last 24 hours): Temp Pulse Resp BP Pulse Ox 97.5 F L 67 18 137/79 95 09/01/18 05:49 09/01/18 05:49 09/01/18 05:49 09/01/18 05:49 08/16/18 20:49 - Medications Medications: Current Medications Acetaminophen (Tylenol 325mg Tab) 650 mg PO Q4 PRN PRN Reason: Pain, moderate (4-7) Last Admin: 08/22/18 21:23 Dose: 650 mg Al Hydrox/Mg Hydrox/Simethicone (Maalox Plus 30 Ml) 30 ml PO Q4 PRN PRN Reason: Dyspepsia Aspirin (Aspirin Chewable) 81 mg PO DAILY [facility] Last Admin: 09/01/18 10:17 Dose: 81 mg Bismuth Subsalicylate (Pepto-Bismol) 524 mg PO Q4 PRN PRN Reason: Diarrhea Donepezil HCl (Aricept) 5 mg PO HS [facility] Last Admin: 08/31/18 21:09 Dose: 5 mg Ibuprofen (Motrin Tab) 600 mg PO Q8 PRN PRN Reason: Pain, severe (8-10) Last Admin: 08/31/18 09:25 Dose: 600 mg Magnesium Hydroxide (Milk Of Magnesia) 30 ml PO HS PRN PRN Reason: Constipation Mirtazapine (Remeron) 7.5 mg PO HS [facility] Last Admin: 08/31/18 21:09 Dose: 7.5 mg - Labs Labs: 08/16/18 16:15 08/16/18 16:15 - Extremities Exam Additional comments: LLE: mild swelling and effusion mild medial and lateral tenderness moderate varus deformity sensation intact SP/DP/TN motor intact EHL/FHL/TA/G/Q/HS pedal pulse intact calves soft NT b/l RLE:mild swelling and effusion no medial tenderness moderate varus deformity sensation intact SP/DP/TN motor intact EHL/FHL/TA/G/Q/HS pedal pulse intact Assessment and Plan (1) Osteoarthritis of knees, bilateral Assessment & Plan: s/p R knee steroid injection with improvement -PT/OT WBAT with assistive device -May need steroid injection to left knee if she has continued pain following PT -orthopedically stable -may f/u as outpt, will follow while in house -d/w Dr. Rodriges who agrees with above Status: Acute
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
[2018-09-02 06:10] VITALS: RESP 20
--- NOTE | 2018-09-02 08:18 | PCM.PYCHPN ---
Psychiatric Progress Note - Psychiatric Progress Note Patient seen today, length of contact: Pt evaluated, case discussed w/ team, chart reviewed Patient Chief Complaint: Inability to care for self Problems Identified/Issues Discussed: Patient pending alf placement as she is not able to care for herself due to physical and cognitive deficits. Patient reports her mood is stable. No acute SI/HI. Medication Change: No Medical Record Reviewed: Yes Consults ordered or reviewed: Medicine consult, Orthopedic consult, Physical Therapy Mental Status Examination - Cognitive Function Orientation: Person, Place, Situation, Time Memory: Impaired Attention: Poor Concentration: Poor Association: WNL Fund of Knowledge: Poor Decription of patient's judgement and insights: Chronic limitations in insight/judgment due to dementia - Mood Mood: Neutral - Affect Affect: Broad - Speech Speech: Appropriate - Formal Thought Process Formal Thought Process: No Impairment Psychotic Thoughts and Behaviors: No AH/VH/paranoia/delusions - Suicidal Ideation Suicidal Ideation: No - Homicidal Ideation Homicidal Ideation: No Goal/Treatment Plan - Goal/Treatment Plan Need for Continued Stay: Severe functional impairment Progress Toward Problem(s) and Goals/Treatment Plan: Major Neurocognitive Disorder, Mood Disorder NOS; Patient is psychiatrically stable for referral to alf placement -Continue Remeron -Medicine consult -Individual and group therapy -Physical therapy -Ortho consult -Disposition planning- refer to alf placement
[2018-09-02] MEDS ORDERED: MethylPREDNISolone Depo 40 mg/ml Inj IAA ONE (10:06)
[2018-09-02] MEDS ORDERED: Bupivacaine 0.25% Inj(30mL) IJ ONE (10:06)
--- NOTE | 2018-09-02 10:11 | CP.PCM.PN ---
Subjective - Date & Time of Evaluation Date of Evaluation: 09/02/18 Time of Evaluation: 12:00 - Subjective Subjective: Patient seen and examined at bedside comfortable. No acute changes since yesterday. No c/o pain to R knee, moderate pain to L knee continues. Objective - Vital Signs/Intake and Output Vital Signs (last 24 hours): Temp Pulse Resp BP Pulse Ox 97.5 F L 70 20 105/70 95 09/02/18 06:00 09/02/18 06:00 09/02/18 06:00 09/02/18 06:00 08/16/18 20:49 - Medications Medications: Current Medications Acetaminophen (Tylenol 325mg Tab) 650 mg PO Q4 PRN PRN Reason: Pain, moderate (4-7) Last Admin: 08/22/18 21:23 Dose: 650 mg Al Hydrox/Mg Hydrox/Simethicone (Maalox Plus 30 Ml) 30 ml PO Q4 PRN PRN Reason: Dyspepsia Aspirin (Aspirin Chewable) 81 mg PO DAILY [facility] Last Admin: 09/02/18 08:41 Dose: 81 mg Bismuth Subsalicylate (Pepto-Bismol) 524 mg PO Q4 PRN PRN Reason: Diarrhea Bupivacaine HCl (Marcaine 0.25%) 20 ml IJ ONCE ONE Stop: 09/02/18 10:07 Donepezil HCl (Aricept) 5 mg PO HS [facility] Last Admin: 09/01/18 21:04 Dose: 5 mg Ibuprofen (Motrin Tab) 600 mg PO Q8 PRN PRN Reason: Pain, severe (8-10) Last Admin: 08/31/18 09:25 Dose: 600 mg Magnesium Hydroxide (Milk Of Magnesia) 30 ml PO HS PRN PRN Reason: Constipation Methylprednisolone Acetate (Depo-Medrol) 40 mg IAA ONCE ONE Stop: 09/02/18 10:07 Mirtazapine (Remeron) 7.5 mg PO HS [facility] Last Admin: 09/01/18 21:04 Dose: 7.5 mg - Labs Labs: 08/16/18 16:15 08/16/18 16:15 - Extremities Exam Additional comments: LLE: mild swelling and effusion mild medial and lateral tenderness moderate varus deformity sensation intact SP/DP/TN motor intact EHL/FHL/TA/G/Q/HS pedal pulse intact calves soft NT b/l RLE:mild swelling and effusion no medial tenderness moderate varus deformity sensation intact SP/DP/TN motor intact EHL/FHL/TA/G/Q/HS pedal pulse intact Assessment and Plan (1) Osteoarthritis of knees, bilateral Assessment & Plan: -L knee steroid injection given with patient's verbal consent. Patient tolerated procedure well -PT/OT WBAT with assistive device -orthopedically stable -august/u as outpt -d/w Dr. Rodriges who agrees with above Status: Acute Procedures Attestation:: I certify that I have explained the specified Operation(s) or Procedure(s), risks, benefits and reasonable alternatives to the Patient and/or other person responsible. The opportunity was given to ask questions and all questions answered - Joint Aspiration/Injection Joint #1 Consent Obtained: Verbal Consent Time Out Performed: Yes Side of Body: Left Joint Aspirated: Knee Ultrasound Guidance Used: No Skin Prep: Chlorprep Local Anesthesia Used: Bupivacaine 0.25% Amount of Anesthesia Used: 1 Needle Size Used: 22 G Fluid Clarity: Clear Total Fluid Removed (mls): 5 Medication Injected: Methylprednisolone Amout of Medication Injected: 10 Patient Tolorated Procedure: Well Complications: None
[2018-09-03 06:17] VITALS: BP 105/63; PULSE 61; TEMP 97.8
--- NOTE | 2018-09-03 08:29 | PCM.PYCHPN ---
Psychiatric Progress Note - Psychiatric Progress Note Patient seen today, length of contact: Pt evaluated, case discussed w/ team, chart reviewed Patient Chief Complaint: Inability to care for self Problems Identified/Issues Discussed: No new events. Patient pending long-term placement as she is not able to care for herself due to physical and cognitive deficits. Patient reports her mood is stable. No acute SI/HI. Medication Change: No Medical Record Reviewed: Yes Consults ordered or reviewed: Medicine consult, Orthopedic consult, Physical Therapy Mental Status Examination - Cognitive Function Orientation: Person, Place, Situation, Time Memory: Impaired Attention: Poor Concentration: Poor Association: WNL Fund of Knowledge: Poor Decription of patient's judgement and insights: Chronic limitations in insight/judgment due to dementia - Mood Mood: Neutral - Affect Affect: Broad - Speech Speech: Appropriate - Formal Thought Process Formal Thought Process: No Impairment Psychotic Thoughts and Behaviors: No AH/VH/paranoia/delusions - Suicidal Ideation Suicidal Ideation: No - Homicidal Ideation Homicidal Ideation: No Goal/Treatment Plan - Goal/Treatment Plan Progress Toward Problem(s) and Goals/Treatment Plan: Major Neurocognitive Disorder, Mood Disorder NOS; Patient is psychiatrically stable for referral to termite treater helper placement -Continue Remeron -Medicine consult -Individual and group therapy -Physical therapy -Ortho consult -Disposition planning- refer to long-term placement
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
== END 2018-09-03 16:03 | DRG 885 ==
LOC: H.ER 14:10 → H.ERHOLD 20:01 → H.STEP 22:59
PROVIDERS: ADMIT Psychiatry & Neurology Psychiatry; ATTEND Psychiatry & Neurology Psychiatry
PROC: GZHZZZZ Group Psychotherapy (ICD-10-PCS; principal; 2018-08-16)
PROC: GZ58ZZZ Individual Psychotherapy, Cognitive-Behavioral (ICD-10-PCS; 2018-08-16)
PROC: 3E0U33Z Introduction of Anti-inflammatory into Joints, Percutaneous Approach (ICD-10-PCS; 2018-09-02)
PROC: 3E0U3BZ Introduction of Anesthetic Agent into Joints, Percutaneous Approach (ICD-10-PCS; 2018-09-02)
DX: F39 Unspecified mood [affective] disorder (principal); F05 Delirium due to known physiological condition; N39.0 Urinary tract infection, site not specified; T74.91XA Unspecified adult maltreatment, confirmed, initial encounter; F01.50 Vascular dementia, unspecified severity, without behavioral disturbance, psychotic disturbance, mood disturbance, and anxiety; M17.0 Bilateral primary osteoarthritis of knee; F32.9 Major depressive disorder, single episode, unspecified; M11.20 Other chondrocalcinosis, unspecified site; I10 Essential (primary) hypertension; R29.6 Repeated falls; H91.90 Unspecified hearing loss, unspecified ear; Z75.1 Person awaiting admission to adequate facility elsewhere; Z91.81 History of falling; Z95.0 Presence of cardiac pacemaker; Z74.01 Bed confinement status